=== PATIENT | female | born 1945 | race Caucasian/White ===

== ENCOUNTER → 2017-02-14 | Outpatient (CLI) | payer OTHER ==
[~2017-02-14] MED LIST: ACET-1138 PO; ACET-1256 PO; ASPEC325 PO; CHOL100010 PO; CLB100 PO; CLC100 PO; FRRG PO; FRRS300 PO; METH-307 PO; METO25TA3 PO; MRLP17X PO; ULT50X PO
--- NOTE | 2017-02-14 16:38 | MAMMOGRAPHY REPORT ---
BILATERAL DIGITAL SCREENING MAMMOGRAM WITH CAD: 02/14/2017 CLINICAL HISTORY: Routine screening. Patient has no complaints. TECHNIQUE: Bilateral CC, MLO and repeat right MLO views were obtained. Current study was also evalu ated with a Computer Aided Detection (CAD) system. COMPARISON: Comparison is made to exams dated: 02/11/2016 mammogram, 09/02/2015 mammogram, 03/03/2015 s tereotactic biopsy, 03/03/2015 mammogram, 02/19/2015 mammogram, and 02/10/2015 mammogram - [facility]. BREAST COMPOSITION: The tissue of both breasts is extremely dense, which lowers the sensitivity of mammography. FINDINGS: There is a stable metallic biopsy marker in the 6:00 left breast. And coarse calcificatio ns in the right breast and scattered punctate microcatheter calcifications are stable bilaterally. There is minimal vascular calcification as well. No new suspicious mass, architectural distortion o r cluster of microcalcifications is seen. IMPRESSION: ACR BI-RADS CATEGORY 1: NEGATIVE There is no mammographic evidence of malignancy. A 1 year screening mammogram is recommended. The p atient will receive written notification of the results. Approximately 10% of breast cancers are not detected with mammography. A negative mammographic repor t should not delay biopsy if a clinically suggestive mass is present. Ruth Mayo M.D. ay/:02/14/2017 13:52:53 Plasma Specialist: Sara Obregon, [facility] letter sent: Normal 1/2 BI-RADS Code: ACR BI-RADS Category 1: Negative
== END | disposition home or self-care (01) ==
LOC: C.MAMM 11:20
PROVIDERS: ATTEND Family Medicine
DX: Z12.31 Encounter for screening mammogram for malignant neoplasm of breast (principal)

== ENCOUNTER 2017-04-19 06:17 | Inpatient (IN) | payer OTHER ==
[2017-03-23 11:22] VITALS: BMI 22.0
--- NOTE | 2017-03-23 12:06 | PAT Medication Instructions ---
Service Date Mar 23, 2017. Current Home Medication List Acetaminophen (Tylenol), 2 TAB PO DAILY PRN for Pain Celecoxib (Celebrex), 1 CAP PO QDL Cholecalciferol (Vitamin D), 1 TAB PO QAM Methocarbamol (Robaxin), 750 MG PO PRN PRN for Muscle Spasms Metoprolol Succ (Toprol Xl) (Toprol-Xl), 12.5 MG PO QDD Polyethylene (Miralax), 1 DOSE PO UD PRN for Constipation Medication Instructions For Your Scheduled Surgery Celecoxib (Celebrex), 1 CAP PO QDL (patient will check with surgeon for instructions) Iron supplements (if started by surgeon can take up until day prior to surgery- do not take morning of surgery) - Hold the following medications the morning of surgery: Polyethylene (Miralax), 1 DOSE PO UD PRN for Constipation Methocarbamol (Robaxin), 750 MG PO PRN PRN for Muscle Spasms Cholecalciferol (Vitamin D), 1 TAB PO QAM - Take the following medications the morning of surgery with a sip of water: Metoprolol Succ (Toprol Xl) (Toprol-Xl), 12.5 MG PO QDD Acetaminophen (Tylenol), 2 TAB PO DAILY PRN for Pain (if needed) - Take the following medications as scheduled the night before surgery: Polyethylene (Miralax), 1 DOSE PO UD PRN for Constipation Methocarbamol (Robaxin), 750 MG PO PRN PRN for Muscle Spasms Acetaminophen (Tylenol), 2 TAB PO DAILY PRN for Pain If you have any questions please call us at [phone] or [phone] ( Sandra) or [phone]
[2017-03-23 12:31] LABS: BASO % 0.4 %; BASO ABS # 0.02 K/uL (0-0.2); COMPLETE YES; EOS % 1.8 %; HEMATOCRIT 36.6 % (37-47); IG% 0.2 %; LYMPH % 44.6 %; LYMPH ABS # 2.03 K/uL (1.2-3.4); MEAN CELL VOLUME 96.3 fL (80-100); MEAN CORPUSCULAR HEMOGLOBIN 31.6 pg (25-34); MEAN CORPUSCULAR HGB CONC 32.8 g/dl (32-36); MEAN PLATELET VOLUME 9.5 fL (7.4-10.4); PLATELET COUNT 212 K/uL (130-400); WHITE BLOOD COUNT 4.55 K/uL (4.8-10.8)
[2017-03-23 12:41] LABS: PARTIAL THROMBOPLASTIN RATIO 1.1; PROTHROMBIN TIME (PATIENT) 10.2 SECONDS (9.0-12.0)
--- NOTE | 2017-03-23 12:59 | DIAGNOSTIC IMAGING REPORT ---
CHEST PREADMISSION(PA/LAT) CLINICAL HISTORY: Preoperative evaluation. COMPARISON STUDY: No previous studies for comparison. FINDINGS: Lung volumes are normal. There is no consolidation or evidence of pulmonary edema. Cardiac size is within normal limits. There is moderate arthritis of both glenohumeral joints. IMPRESSION: No acute cardiopulmonary findings. Electronically signed by: Thompson Medrano M.D. 03/23/2017 12:57 PM Dictated Date/Time: 03/23/2017 12:56 PM
[2017-03-23 14:18] LABS: BUN/CREATININE RATIO 44.7 (10-20); CREATININE 0.51 mg/dl (0.60-1.20); POTASSIUM 4.3 mmol/L (3.5-5.1)
[2017-03-23 14:29] LABS: CALCIUM 9.3 mg/dl (8.5-10.1)
--- NOTE | 2017-04-16 11:25 | HISTORY & PHYSICAL EXAMINATION ---
DATE OF ADMISSION: 04/19/2017 CHIEF COMPLAINT: Bilateral hip pain, right side greater than left. HISTORY OF PRESENT ILLNESS: A 71-year-old female who presents for surgical treatment of her right hip. She has got a several year history of increasing bilateral hip pain and discomfort. She has been through extensive conservative treatment including oral medicines, massage therapy among other treatments. All these things have helped a little bit but over time she has developed increased pain and discomfort and decreased ability to get around. She reports significant stiffness in both hips. She gets fatigued and discomfort with any prolonged walking and difficulty doing this. She tried to work through it but tired of it and would like to consider hip arthroplasty, particularly on the right side. She really wants to do both hips, but do the right first. PAST MEDICAL HISTORY: 1. One episode of abnormal heartbeat managed with a beta abigail. 2. Anemia, status post cancer history. 3. 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 PAST SURGICAL HISTORY: Include: 1. Ileum resection for carcinoid. 2. Benign breast biopsies. ALLERGIES: None. CURRENT MEDICINES: Include: 1. Beta abigail half pill once a day. 2. Celebrex once a day. 3. Vitamin D. 4. MiraLax. 5. Anti-inflammatories. SOCIAL HISTORY: A 71-year-old female. She is . Does not smoke. FAMILY HISTORY: Noncontributory. REVIEW OF SYSTEMS: Negative for diabetes, neurologic problems, vascular problems, bleeding disorders. Denies any chest pain, no shortness of breath. No history of DVT or PE. She did have this one episode of arrhythmia, but well controlled. She does have chronic constipation issues with her carcinoid and bowel resection. She is on chronic MiraLax. PHYSICAL EXAMINATION: GENERAL: Reveals a pleasant, healthy appearing, middle-aged female. She looks in excellent health. HEAD, EYES, EARS, NOSE, AND THROAT EXAMINATION: Benign. NECK: Supple. No lymphadenopathy. LUNGS: Clear to auscultation. HEART: Regular rate and rhythm. ABDOMEN: Soft, nontender, nondistended. EXTREMITY EXAMINATION: Grossly neurovascularly intact except as follows: Examination of both hips reveals the patient walks with a bit of a waddling gait. Leg lengths clinically appear pretty equal. She has very stiff hips with very limited rotation, particularly internal. The right side is stiffer than the left. Negative straight leg raise. She is neurologically intact. X-RAYS: X-rays of both hips were reviewed. 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 She has got cystic change in the femoral head and acetabulum. ASSESSMENT: A 71-year-old female with bilateral hip pain and discomfort consistent with moderate to advanced hip DJD, right side a bit more symptomatic than the left. She would like to consider hip replacement surgery. PLAN: We are going to take her to the operating room and do a right total hip replacement. The risks and benefits of this procedure were explained to the patient including but not limited to DVT, PE, , infection, neurological injury, vascular injury, bleeding problem, pain, limited range of motion, stiffness, failure to relieve symptoms, incomplete relief of symptoms, need for further surgery in the future, fracture, leg length inequality, nerve palsy, dislocation, etc. The patient understands and desires to proceed. Informed consent was obtained. The patient has a history of constipation since carcinoid resection. We will be aggressive and try to manage this postoperatively. As far as discharge plans, she is planning to be discharged to home using [facility] home health program.
[~2017-04-19] VITALS: Ht 167.6 cm; Wt 64.5 kg
[2017-04-19] VITALS (11 sets, daily range): BP systolic 82–112; BP diastolic 48–66; PULSE 45–55; TEMP 35.4–36.8; O2SAT 95–99; Ht 167.6 cm; Wt 64.5 kg
[~2017-04-19 06:17] MED LIST changes: -ACET-1138 PO; +ACETAMINOPHEN 500 MG TAB PO SCH; -ASPEC325 PO; +CEFAZOLIN 2000 MG/60 ML D5W 60 ML IV SCH; -CLC100 PO; +FAMOTIDINE 20 MG TAB PO SCH; -FRRG PO; -FRRS300 PO; +GABAPENTIN 300 MG CAP PO SCH; +LACTATED RINGER'S 1000ML IV SCH; +LACTATED RINGER'S 500 ML IV SCH; +METOCLOPRAMIDE HCL 10 MG TAB PO SCH; +SCOPOLAMINE 1.5 MG TDSY TD SCH; +TRANEXAMIC ACID INJ 1,000 MG in SODIUM CHLORIDE 0.9% 100ML 100 ML IV SCH; -ULT50X PO
[2017-04-19] MEDS ORDERED: MoRPHine SULFATE PF 1 MG/ML 10 ML AMP/VIAL ONE (07:25)
[2017-04-19] MEDS ORDERED: FENTANYL CITRATE INJ 50 MCG/1 ML 2 ML VIAL ONE (07:26)
[2017-04-19] MEDS ORDERED: MIDAZOLAM HCL 1 MG/ML 2ML VIAL ONE (07:26)
[2017-04-19] MEDS ORDERED: ONDANSETRON INJ 2 MG/ML 2 ML VIAL ONE (07:28)
[2017-04-19] MEDS ORDERED: PROPOFOL IV EMULSION 10 MG/ML 20 ML VIAL IV ONE (07:28)
[2017-04-19] MEDS ORDERED: BUPIVACAINE 0.5 % 5 MG/1 ML PF 10ML VIAL ONE (07:42)
--- NOTE | 2017-04-19 08:55 | History & Physical Bridge Note ---
H&P Re-Evaluation Bridge Note: I have examined the patient, reviewed the History & Physical and in the interval since the performance of the History & Physical I have noted the following changes of clinical significance: No changes noted
[2017-04-19] MEDS ORDERED: BACITRACIN 50000 UNIT VIAL ONE (08:59)
[2017-04-19] MEDS ORDERED: BUPIVACAINE/EPINEPHRINE 0.5% MPF 1:200,000 30 ML VIAL ONE (08:59)
[2017-04-19] MEDS ORDERED: WATER, STERILE FOR INJ 10 ML VIAL ONE (09:59)
[2017-04-19] MEDS ORDERED: EpHEDrine SULFATE INJ 50 MG/ML AMP ONE (09:59)
--- NOTE | 2017-04-19 10:41 | [facility] Post Operative Brief Note ---
Immediate Operative Summary Operative Date April 19, 2017. Pre-Operative Diagnosis Advanced Right Hip Degenerative Joint Disease Post-Operative Diagnosis Advanced Right Hip Degenerative Joint Disease Procedure(s) Performed Right Total Hip Arthroplasty--Uncemented Surgeon Dr. Jerome Bilingual Teacher Assistant Surgeon(s) ISHA Simpson Estimated Blood Loss 200 cc Findings Right Hip DJD Fluids (cc crystalloids) 1400 cc Specimens A. Right Femoral Head Drains None Anesthesia Spinal Complication(s) None Disposition Recovery Room / PACU
[2017-04-19] MEDS ORDERED: MAGNESIUM HYDROXIDE SUSP 30 ML UDC PO PRN (10:45)
[2017-04-19] MEDS ORDERED: ALUMINUM/MAGNESIUM/SIMETH (MAALOX MAX) 30 ML UDC PO PRN (10:45)
[2017-04-19] MEDS ORDERED: SILVER SULFADIAZINE 1% CR 50 GM JAR EXT PRN (10:45)
[2017-04-19] MEDS ORDERED: BISACODYL 10 MG SUPP PR PRN (10:45)
[2017-04-19] MEDS ORDERED: POLYETHYLENE (MIRALAX) 17 GM PACK PO PRN (10:45)
[2017-04-19] MEDS ORDERED: NALOXONE HCL INJ 1 MG in SODIUM CHLORIDE 0.9% 1000ML 1,000 ML IV PRN ×4 (11:03)
[2017-04-19] MEDS ORDERED: NALOXONE HCL INJ 0.08 MG in SYRINGE 1.8 ML IV PRN ×2 (11:03→12:45)
[2017-04-19] MEDS ORDERED: SODIUM CHLORIDE 0.9% 1000ML 1,000 ML IV PRN (11:03)
[2017-04-19] MEDS ORDERED: LACTATED RINGER'S 1000ML 500 ML IV PRN (11:03)
[2017-04-19] MEDS ORDERED: DC INTRASPINAL MORPHINE SCH (11:15)
[2017-04-19] MEDS ORDERED: EpHEDrine SULFATE INJ 50 MG/ML AMP IV PRN (11:15)
[2017-04-19] MEDS ORDERED: MoRPHine SULFATE PF 1 MG/ML 10 ML AMP/VIAL EPI PRN (11:15)
[2017-04-19] MEDS ORDERED: NALOXONE HCL 0.4 MG/1 ML VIAL/CARP IV PRN (11:15)
[2017-04-19] MEDS ORDERED: ONDANSETRON INJ 2 MG/ML 2 ML VIAL IV PRN (11:15)
[2017-04-19] MEDS ORDERED: DiphenhydrAMINE HCL 50 MG/ML VIAL IV PRN (11:15)
[2017-04-19] MEDS ORDERED: PROMETHAZINE HCL INJ 25 MG in SODIUM CHLORIDE 0.9% 50ML 50 ML IV PRN (11:15)
[2017-04-19] MEDS ORDERED: NO NARCOTICS OR SEDATIVES SCH (11:15)
[2017-04-19] MEDS ORDERED: NALBUPHINE HCL INJ 10 MG/ML AMP IV PRN (11:15)
--- NOTE | 2017-04-19 11:18 | DIAGNOSTIC IMAGING REPORT ---
RIGHT PELVIS/UNILATERAL HIP 1 VIEW CLINICAL HISTORY: Right hip degenerative joint disease. Arthroplasty. COMPARISON: Pelvis and hip radiographs February 25, 2017. FINDINGS: Alignment of the total right hip arthroplasty is anatomic. There is no periprosthetic fracture or unexpected radiopaque foreign body. 2 acetabular screws are placed. There are skin eusebia. IMPRESSION: Expected findings following total right hip arthroplasty. Electronically signed by: Thompson Medrano M.D. 04/19/2017 11:17 AM Dictated Date/Time: 04/19/2017 11:16 AM
--- NOTE | 2017-04-19 11:32 | Anesthesiology Progress Note ---
Anesthesia Post Op Note Date & Time April 19, 2017 at 11:32 Vital Signs Pain Intensity: 0 Vital Signs Past 12 Hours Date Time Temp Pulse Resp B/P Pulse Ox O2 Delivery O2 Flow Rate FiO2 04/19/17 11:20 36.4 52 16 94/50 99 Nasal Cannula 2 04/19/17 11:10 36.4 55 16 92/51 100 Nasal Cannula 2 04/19/17 11:00 55 16 95/50 100 Nasal Cannula 2 04/19/17 10:50 53 16 104/54 100 Nasal Cannula 2 04/19/17 10:40 36.6 61 16 97/54 98 Nasal Cannula 2 04/19/17 07:25 36.6 53 20 112/66 97 Room Air Notes Mental Status: alert / awake / arousable, participated in evaluation Pt Amnestic to Procedure: Yes Nausea / Vomiting: adequately controlled Pain: adequately controlled Airway Patency, RR, SpO2: stable & adequate BP & HR: stable & adequate Hydration State: stable & adequate Neuraxial Anesthesia: was administered, sensory block is resolving Anesthetic Complications: no major complications apparent
--- NOTE | 2017-04-19 11:50 | OPERATIVE REPORT ---
DATE OF OPERATION: 04/19/2017 SURGEON: Dr. Francois Jerome. SKEIN WINDING OPERATOR: ISHA Ortega PREOPERATIVE DIAGNOSIS: Right hip degenerative joint disease. POSTOPERATIVE DIAGNOSIS: Same. PROCEDURE PERFORMED: Right uncemented ceramic on highly cross-linked polyethylene total hip arthroplasty. COMPLICATIONS: None. ESTIMATED BLOOD LOSS: 200 mL. FLUID REPLACEMENT: 1400 mL crystalloid fluid replacement. ANESTHESIA: Duramorph spinal. DRAINS: None. SPECIMENS: Right femoral head sent for pathology. OPERATIVE INDICATIONS: The patient is a 71-year-old female who has had a several year history of bilateral hip pain and discomfort. She has been through extensive conservative care. As time has gone on, she is limiting her activities. Both hips were hurting pretty equally, but the right hip looked a little bit worse radiographically. We elected to proceed with total hip arthroplasty. OPERATIVE FINDINGS: Operative findings revealed advanced right hip DJD. She had grade 4 [id number] disease of the femoral head and acetabulum. She did not have much eburnation. She did have a small hip joint effusion. No real major osteophytes. OPERATIVE IMPLANTS: Operative implants consisted of: 1. Biomet G7 size 50-mm acetabular shell. 2. A 6.5 cancellous acetabular screws, 1 at 35 mm length and 1 at 20 mm in length. 3. An apex hole eliminator. 4. Highly cross-linked polyethylene liner with a 50 mm outer diameter and 32 mm inner diameter. 5. A +5/32 mm metal articular ball. 6. DePuy [place] size 4 standard offset femoral stem. OPERATIVE PROCEDURE: The patient was taken to the operating room, and placed on the operating table in the supine position. A spinal anesthetic had been implemented in the holding area. A Miranda catheter was placed in a sterile fashion. The patient was then placed in the left lateral decubitus position. An axillary roll was placed. A Stulberg hip positioner was used for positioning. All contact areas were meticulously padded and the right hip and leg were then prepped and draped in the usual sterile fashion. A posterolateral approach to the right hip was then performed through a curvilinear incision centered over the greater trochanter. Sharp dissection was carried out through the subcutaneous tissues down to the level of the IT band and gluteal fascia. The IT band and gluteal fascia were then incised longitudinally in line with skin incision. The underlying greater trochanteric bursa was excised. The piriformis and external rotators were tagged and taken off the posterior aspect of the femur. Great care was taken throughout the procedure to protect the sciatic nerve at all times. Posterior capsulotomy was then performed leaving a large flap for later repair. Hip was internally rotated and dislocated. Femoral neck osteotomy cut was made with the final cut 12 mm above the lesser trochanter. Femoral head was removed and sent for pathology. The femur was retracted anteriorly. Attention was then drawn to the acetabulum. The acetabular labrum was excised. The pulvinar fat was excised. Sequential reaming of the acetabulum was then performed beginning with a size 43 and progressing up to 49. A 50-mm Biomet G7 acetabular shell was then placed in about 40 degrees of lateral opening and 20 degrees of anteversion. It was fixed with two 6.5 cancellous acetabular screws. A trial liner was placed. Attention was then drawn to the femur. The proximal femur was entered with cookie cutter followed by canal finder and lateralizing reamer. Sequential reaming of the femur was then performed beginning with a size 0/1 progressing up to 2/3. I then broached beginning with a size 1 broach and progressing up to a 4. We got excellent metaphyseal fit. I could not quite get this down to the calcar cut, but pretty close. We elected to use this implant. We then trialed the hip. The +5/32 mm articular ball restored leg lengths equal and was fully stable in full extension and external rotation and flexion to 90 degrees, internal rotation to over 50-60 degrees. Soft tissue tension seemed appropriate. I elected to use these implants. All trial implants were removed. An apex hole eliminator was placed. A highly cross-linked polyethylene liner was placed. A DePuy [place] size 4 standard offset femoral stem was placed. We once again did not quite get this down to the calcar cut, but about 2 mm proud. A +5/32 mm ceramic articular ball was placed. Hip was located and once again found to be stable. Attention was then drawn toward closing. The wound was irrigated with copious amounts of pulsatile lavage solution. I did inject locally with 60 mL of 0.5% Marcaine with epinephrine. The posterior capsule and external rotators were then repaired through drill holes in the posterior trochanter with #2 Ti-Cron suture. The IT band and gluteal fascia were then closed with #1 PDS suture in running fashion. The subcutaneous tissues were then closed with 2 layers with the deep layer #1 Vicryl suture and the subcutaneous tissues with 2-0 Dexon suture in a buried interrupted fashion. Skin was closed skin eusebia. Leg was then cleaned and dried and a sterile dressing of Xeroform, 4 x 4s, ABD pad and foam tape was applied. The patient then transferred to the recovery room in stable condition. The patient tolerated the procedure well with no complications. All needle and sponge counts were correct at the end of the operation. I attest to the content of the Intraoperative Record and any orders documented therein. Any exceptio ns are noted below.
[2017-04-19] MEDS: D5W AND 1/2NSS + 20MEQ KCL 1,000 ML IV SCH ×2 (13:37→22:23)
[2017-04-19] MEDS: KETOROLAC TROMETHAMINE 15 MG/ML VIAL IV. SCH ×2 (14:29→22:30)
[2017-04-19] MEDS: ACETAMINOPHEN 500 MG TAB PO SCH ×2 (14:29→22:31)
[2017-04-19] MEDS: CHECK SCOPOLAMINE PATCH PLACEMENT SCH (16:00)
[2017-04-19] MEDS ORDERED: TRANEXAMIC ACID INJ 1,000 MG in SODIUM CHLORIDE 0.9% 100ML 100 ML IV ONE (17:00)
[2017-04-19] MEDS: METOPROLOL SUCC 25MG EXT REL TAB PO SCH (17:45)
[2017-04-19] MEDS: FERROUS GLUCONATE 324 MG TAB PO SCH ×2 (17:45→18:12)
[2017-04-19] MEDS: CEFAZOLIN IV 1,000 MG in DEXTROSE 5% 50ML 50 ML IV SCH (18:12)
--- NOTE | 2017-04-19 19:49 | PROGRESS NOTE ---
DATE: 04/19/2017 SUBJECTIVE: A 71-year-old female postop from a right total hip replacement. She is doing well. Not having any pain yet. No chest pain or shortness of breath. Not feeling dizzy or lightheaded. OBJECTIVE: VITAL SIGNS: Temperature 36.3. Vital signs stable. Mild hypotension with blood pressure 92/52. She is asymptomatic. GENERAL: Reveals the patient is lying in bed and looks quite comfortable. She is lying flat in bed at the nurses' request. LUNGS: Clear to auscultation. HEART: Regular rate and rhythm. ABDOMEN: Soft, nontender, nondistended. EXTREMITIES: Grossly neurovascularly intact except as follows: Examination of the right hip and leg reveals the leg lengths to be equal. Hip is located. Dressing is clean, dry and intact. Thigh is soft and supple. She can dorsiflex and plantarflex her foot appropriately. She is neurologically intact. X-RAYS: X-rays of the right hip from recovery room reviewed. It shows a right uncemented total hip arthroplasty. Components looked to be in good position. No signs of problems. ASSESSMENT: A 71-year-old female postop from a right total hip replacement, doing well. Pain is controlled. Hip is located. She is neurologically intact. She is hypotensive, but asymptomatic. PLAN: 1. DVT prophylaxis including thigh-high TEDs, SCDs, and aspirin twice a day. 2. PT/OT. She can weightbear as tolerated. Right total hip protocol. 3. Pain control, doing well with current pain regimen. 4. IV antibiotics x24 hours. 5. Disposition: She is hoping to be discharged to home with some home health once adequately recovered.
[2017-04-19] MEDS ORDERED: ASPEC325 PO (22:00)
[2017-04-19] MEDS ORDERED: FRRG PO (22:00)
[2017-04-19] MEDS ORDERED: ULT50X PO (22:00)
[2017-04-19] MEDS ORDERED: ACET-1138 PO (22:00)
[2017-04-19] MEDS ORDERED: CLC100 PO (22:00)
--- NOTE | 2017-04-19 22:03 | Discharge Instructions ---
Discharge Instructions Date of Service April 19, 2017. Admission Reason for Admission: Right Hip Degenerative Joint Disease, Hip Pain Discharge Discharge Diagnosis / Problem: Right Hip Replacement Discharge Goals Goal(s): Decrease discomfort, Improve function, Increase independence, Improve disease control, Therapeutic intervention Activity Recommendations Activity Limitations: per Instructions/Follow-up section (total Hip Precautions ) Weightbearing Status: Right weightbearing . Instructions / Follow-Up Instructions / Follow-Up ACTIVITY RECOMMENDATIONS: Physical Therapy: * Aggressive physical therapy is not usually needed. You will learn to take care of yourself safely and walk. * Follow the "Hip Precautions Instructions." * In some cases, the social work instructor at the hospital will arrange to have a therapist come to your house for the first couple of weeks to help you learn these skills. * You need to practice on your own or with the help of a family member as needed. * When you learn these skills, most of the therapy can be done on your own. Home Exercise: * You were shown a series of exercises in the hospital. Do these exercises three to four times each day including the exercises you were shown in physical therapy. Walking: * Get up and walk several times each day. For the first four weeks, try not to stand or walk for more than one hour at a time. If you do stand or walk for more than one hour, you will not hurt anything, but your leg will likely swell. * As you feel comfortable, you may change from the walker or crutches to a cane and then to independent walking. MEDICATIONS: New Medicine: * You will likely be taking one or more of these medicines: 1. Tramadol - Take, as directed, when you need it, every four to six hours to control your pain. 2. Iron Sulfate - Take three times each day for the month after surgery to help you replace the blood lost during surgery. 3. AAspirin - Thins your blood to lessen the chance of forming a blood clot. * The most common side effects of pain medicine and iron are nausea and constipation. If nausea or constipation is too much of a problem or if you have any questions about your new medicines or doses, call [facility] at . We will try to help you manage these issues. VERY IMPORTANT TO READ AND REVIEW" Pain: * The immediate post-operative period after hip replacement surgery is often quite painful. * You are given a prescription for pain medicine. You should take it, as directed, when you need it, especially before physical therapy and before going to bed. Pain that interferes with sleep is very common and can last several months. * You will likely need pain medicine for the first two to four weeks. It will not stop all of the pain. The pain will lessen and as you feel better, you may change to milder pain medicine such as Tylenol. * The most common side effects of pain medicine are nausea and constipation, so don't take more than you need. SPECIAL CARE INSTRUCTIONS: TEDs/Elastic Stockings: * The white elastic stockings help limit swelling and prevent blood clots from forming in your legs. The more you wear them, the more they work. * Wear them for six weeks. Prevention of Infection: * Take antibiotics one hour before any dental cleaning, dental work, urological procedure, gastrointestinal procedure or any invasive surgery in order to prevent your new joint from getting infected. * You may get the antibiotics from the doctor performing the procedure or you may call our office at before and we will call in a prescription to the pharmacy of your choice. Things to Watch For: * Drainage from the incision site that occurs more than one week after your surgery. * Severely increased leg pain or swelling. * Increased redness at the incision site. * Fever above 102 degrees Fahrenheit. * Unusual chest pain or shortness of breath. * Unusual pain or burning with urination. Call [facility] at with any of the above problems or if you have any questions about your medicines or recovery. FOLLOW UP VISIT: Make an appointment to see your doctor for approximately two weeks after surgery for a progress check and staple removal by calling the office at . Current Hospital Diet Patient's current hospital diet: Regular Diet Discharge Diet Recommended Diet: Regular Diet Procedures Procedures Performed: Right Total Hip Arthroplasty--Uncemented Pending Studies Studies pending at discharge: no Medical Emergencies . Who to Call and When: Medical Emergencies: If at any time you feel your situation is an emergency, please call [phone] immediately. . Non-Emergent Contact Non-Emergency issues call your: Surgeon . "Provider Documentation" section prepared by Francois Jeorme. . VTE Core Measure Inpt VTE Proph given/why not?: Other Anticoagulation, T.E.D. Stockings, SCD's
[2017-04-19] MEDS: DOCUSATE SODIUM 100 MG CAP PO SCH (22:30)
[2017-04-19] MEDS: ASPIRIN 325 MG ECTAB PO SCH (22:31)
[2017-04-19] MEDS: SENNA 8.6 MG TAB PO SCH (22:32)
[2017-04-20] VITALS (12 sets, daily range): BP systolic 90–130; BP diastolic 52–73; PULSE 49–62; TEMP 36.4–37; O2SAT 92–98
[2017-04-20] MEDS: CHECK SCOPOLAMINE PATCH PLACEMENT SCH ×4 (00:17→23:34)
[2017-04-20] MEDS: CEFAZOLIN IV 1,000 MG in DEXTROSE 5% 50ML 50 ML IV SCH (02:07)
[2017-04-20] MEDS: KETOROLAC TROMETHAMINE 15 MG/ML VIAL IV. SCH ×4 (02:07→20:15)
[2017-04-20] MEDS ORDERED: TRAMADOL HCL 50 MG TAB PO PRN (04:15)
[2017-04-20] MEDS ORDERED: METHOCARBAMOL 750 MG TAB PO PRN (04:16)
[2017-04-20] MEDS ORDERED: METOCLOPRAMIDE HCL INJ 5 MG/ML 2 ML VIAL IV PRN (04:16)
[2017-04-20] MEDS ORDERED: ZOLPIDEM TARTRATE 5 MG TAB PO PRN (04:16)
[2017-04-20] MEDS: ACETAMINOPHEN 500 MG TAB PO SCH ×3 (05:59→22:00)
[2017-04-20 06:06] LABS: BASO % 0.1 %; BASO ABS # 0.01 K/uL (0-0.2); COMPLETE YES; IG% 0.3 %; LYMPH % 14.6 %; LYMPH ABS # 1.16 K/uL (1.2-3.4); MEAN CELL VOLUME 97.1 fL (80-100); MEAN CORPUSCULAR HEMOGLOBIN 32.4 pg (25-34); MEAN CORPUSCULAR HGB CONC 33.3 g/dl (32-36); MEAN PLATELET VOLUME 9.4 fL (7.4-10.4); MONO % 9.9 %; NEUT % 75.1 %; PLATELET COUNT 151 K/uL (130-400); RED BLOOD COUNT 3.09 M/uL (4.2-5.4); WHITE BLOOD COUNT 7.96 K/uL (4.8-10.8)
[2017-04-20 06:47] LABS: BUN/CREATININE RATIO 24.9 (10-20); CALCIUM 7.4 mg/dl (8.5-10.1); CREATININE 0.65 mg/dl (0.60-1.20); POTASSIUM 4.3 mmol/L (3.5-5.1)
--- NOTE | 2017-04-20 07:48 | Anesthesiology Progress Note ---
Anesthesia Post Op Note Date & Time April 20, 2017 at 07:47 Vital Signs Pain Intensity: 0.0 Vital Signs Past 12 Hours Date Time Temp Pulse Resp B/P Pulse Ox O2 Delivery O2 Flow Rate FiO2 04/20/17 04:00 17 97 04/20/17 03:26 37.0 53 16 93/52 94 Nasal Cannula 2.0 04/20/17 03:00 17 95 04/20/17 02:00 18 97 04/20/17 01:00 18 97 04/20/17 00:30 Nasal Cannula 2.0 04/20/17 00:00 18 97 04/19/17 23:55 36.8 55 16 105/48 95 Nasal Cannula 2.0 Notes Mental Status: alert / awake / arousable, participated in evaluation Pt Amnestic to Procedure: Yes Nausea / Vomiting: adequately controlled Pain: adequately controlled Airway Patency, RR, SpO2: stable & adequate BP & HR: stable & adequate Hydration State: stable & adequate Anesthetic Complications: no major complications apparent
[2017-04-20] MEDS: DOCUSATE SODIUM 100 MG CAP PO SCH ×2 (08:29→20:16)
[2017-04-20] MEDS: MULTIVITAMIN TAB PO SCH (08:29)
[2017-04-20] MEDS: ASPIRIN 325 MG ECTAB PO SCH ×2 (08:29→20:16)
[2017-04-20] MEDS: FERROUS GLUCONATE 324 MG TAB PO SCH ×3 (08:29→17:54)
[2017-04-20] MEDS: CHOLECALCIFEROL 400 INTER.UNIT TAB PO SCH (08:29)
[2017-04-20] MEDS: D5W AND 1/2NSS + 20MEQ KCL 1,000 ML IV SCH (08:30)
[2017-04-20] MEDS: PANTOprazole SOD 40 MG TAB PO SCH (08:30)
[2017-04-20] MEDS: METOPROLOL SUCC 25MG EXT REL TAB PO SCH (17:54)
--- NOTE | 2017-04-20 19:01 | PROGRESS NOTE ---
DATE: 04/20/2017 SUBJECTIVE: A 71-year-old white female postop day 1 from right total hip replacement. She is doing pretty well. Pain is controlled. Therapy went pretty well. Denies any chest pain or shortness of breath. Not feeling dizzy or lightheaded. PHYSICAL EXAMINATION: GENERAL: Shows a pleasant, thin female. The patient is lying in bed, looks pretty comfortable. LUNGS: Clear to auscultation. HEART: Regular rate and rhythm. ABDOMEN: Soft, nontender, nondistended. EXTREMITIES: Grossly neurovascularly intact except as follows: Examination of the right hip and leg reveals her hip to be located. Leg lengths were equal. Dressing is clean, dry and intact. She can dorsiflex and plantarflex her foot appropriately. LABORATORY DATA: Hemoglobin 10.0. Hematocrit 30.0. Electrolytes are stable. ASSESSMENT: A 71-year-old white female postop day 1 from right total hip replacement, doing pretty well. Pain is controlled. PLAN: 1. DVT prophylaxis including thigh-high TEDs, SCDs, and aspirin twice a day. 2. PT/OT. Weightbear as tolerated. Right total hip protocol. 3. Pain control, doing pretty well with current pain regimen. 4. Disposition: She is planning to be discharged to home with some home health once adequately recovered.
[2017-04-20] MEDS: SENNA 8.6 MG TAB PO SCH (20:16)
[2017-04-20] MEDS: ONDANSETRON INJ 2 MG/ML 2 ML VIAL IV PRN (22:27)
[2017-04-21] MEDS ORDERED: NURSING VERBAL MED ORDER ONE (00:45)
[2017-04-21] MEDS: NYSTATIN SUSP 500,000 U/5 ML UDC PO SCH ×2 (01:57→09:51)
[2017-04-21] MEDS: KETOROLAC TROMETHAMINE 15 MG/ML VIAL IV. SCH ×2 (01:57→07:19)
[2017-04-21] MEDS: ACETAMINOPHEN 500 MG TAB PO SCH (05:41)
[2017-04-21 05:59] VITALS: BP 132/79; PULSE 66; TEMP 36.8; O2SAT 94
[2017-04-21] MEDS: ONDANSETRON INJ 2 MG/ML 2 ML VIAL IV PRN (07:19)
--- NOTE | 2017-04-21 07:32 | PROGRESS NOTE ---
DATE: 04/21/2017 SUBJECTIVE: A 71-year-old female postop day 2 from right total hip replacement. She is doing pretty well. Pain is controlled. No chest pain or shortness of breath. Not feeling dizzy or lightheaded. OBJECTIVE: VITAL SIGNS: Temperature 36.8. Vital signs stable. PHYSICAL EXAMINATION: GENERAL: A healthy pleasant elderly female. She is lying in bed, looks pretty comfortable. LUNGS: Clear to auscultation. HEART: Regular rate and rhythm. ABDOMEN: Soft, nontender, nondistended. EXTREMITIES: Grossly neurovascularly intact except as follows: Examination of the right hip and leg reveals the dressing to be clean, dry and intact. Hip is located. She is neurologically intact. ASSESSMENT: A 71-year-old female postop day 2 from right total hip replacement, doing well. Pain is controlled. Therapy has gone well. PLAN: 1. DVT prophylaxis including thigh-high TEDs, SCDs, and aspirin twice a day. 2. PT/OT. Weightbearing as tolerated. Right total hip protocol. 3. Pain control, doing pretty well with current pain regimen. 4. Disposition: Plan to discharge to home with some home health once adequately recovered.
[2017-04-21] MEDS: FERROUS GLUCONATE 324 MG TAB PO SCH (08:30)
[2017-04-21] MEDS: MULTIVITAMIN TAB PO SCH (09:00)
[2017-04-21] MEDS: ASPIRIN 325 MG ECTAB PO SCH (09:50)
[2017-04-21] MEDS: DOCUSATE SODIUM 100 MG CAP PO SCH (09:52)
[2017-04-21] MEDS: PANTOprazole SOD 40 MG TAB PO SCH (09:53)
[2017-04-21] MEDS: CHOLECALCIFEROL 400 INTER.UNIT TAB PO SCH (09:54)
[2017-04-21 10:21] VITALS: BP 132/79; PULSE 66; TEMP 36.8; O2SAT 94
--- NOTE | 2017-04-27 08:34 | DISCHARGE SUMMARY ---
ADMITTING PHYSICIAN AND SURGEON: Dr. Jerome. ADMITTING DIAGNOSIS: Right hip degenerative joint disease. SURGERY PERFORMED: Right total hip arthroplasty. SECONDARY DIAGNOSES: Includes episode of abnormal heartbeat, anemia, carcinoid of the ileum. CONSULTS: None obtained. HISTORY AND PHYSICAL EXAMINATION: Well documented in the patient's chart. HOSPITAL COURSE: The patient was admitted on 04/19/2017 and underwent total hip arthroplasty, tolerated the procedure well. There were no complications. She was transferred to the PACU postoperatively and later to the orthopedic floor for further care. She was given Ancef for antibiotic prophylaxis, MAYTE stockings, SCDs and aspirin for DVT prophylaxis. Hemoglobin, hematocrit and vital signs were monitored during her hospital stay and remained stable. She developed some postoperative anemia, did not require any blood transfusions. There were no complications. On postoperative day 2, she was tolerating a general diet. She was participating in physical therapy. She had no signs or symptoms of deep vein thrombosis. On postop day 2, she was discharged home, was set up with home health services. She was given printed discharge instructions including prescriptions for extra strength Tylenol, aspirin 325 mg b.i.d., docusate, iron supplement and tramadol. Continue her home medications, continue physical therapy. She is weight bearing as tolerated on total hip precautions, MAYTE stockings. Follow up in 10-12 days or sooner if there are any problems or concerns.
== END 2017-04-21 11:22 | disposition home health service (06) | DRG 470 ==
LOC: ENRESERVTM → ENRESERVDT → C.ACU 06:17 → C.3E 07:55
PROVIDERS: ADMIT Orthopaedic Surgery Sports Medicine; ATTEND Orthopaedic Surgery Sports Medicine
PROC: 0SR904A Replacement of Right Hip Joint with Ceramic on Polyethylene Synthetic Substitute, Uncemented, Open Approach (ICD-10-PCS; principal; 2017-04-19 08:55)
DX: M16.0 Bilateral primary osteoarthritis of hip (principal); D64.9 Anemia, unspecified; M54.5 Low back pain; K59.00 Constipation, unspecified; M81.0 Age-related osteoporosis without current pathological fracture; M54.10 Radiculopathy, site unspecified; I95.9 Hypotension, unspecified; M25.451 Effusion, right hip; I08.1 Rheumatic disorders of both mitral and tricuspid valves; I49.1 Atrial premature depolarization; Z85.830 Personal history of malignant neoplasm of bone; Z79.1 Long term (current) use of non-steroidal anti-inflammatories (NSAID); Z79.899 Other long term (current) drug therapy

== ENCOUNTER → 2018-02-16 | Outpatient (CLI) | payer OTHER ==
[~2018-02-16] MED LIST changes: +ACET-1138 PO; -ACETAMINOPHEN 500 MG TAB PO SCH; +ASPEC325 PO; -CEFAZOLIN 2000 MG/60 ML D5W 60 ML IV SCH; +CLC100 PO; -FAMOTIDINE 20 MG TAB PO SCH; +FRRG PO; -GABAPENTIN 300 MG CAP PO SCH; -LACTATED RINGER'S 1000ML IV SCH; -LACTATED RINGER'S 500 ML IV SCH; -METOCLOPRAMIDE HCL 10 MG TAB PO SCH; -SCOPOLAMINE 1.5 MG TDSY TD SCH; -TRANEXAMIC ACID INJ 1,000 MG in SODIUM CHLORIDE 0.9% 100ML 100 ML IV SCH; +ULT50X PO
--- NOTE | 2018-02-20 12:42 | MAMMOGRAPHY REPORT ---
BILATERAL DIGITAL SCREENING MAMMOGRAM TOMOSYNTHESIS WITH CAD: 02/16/2018 CLINICAL HISTORY: Routine screening. Patient has no complaints. TECHNIQUE: Breast tomosynthesis in addition to standard 2D mammography was performed. Current study was also evaluated with a Computer Aided Detection (CAD) system. COMPARISON: Comparison is made to exams dated: 02/14/2017 mammogram, 02/11/2016 mammogram, 09/02/2015 m ammogram, 03/03/2015 mammogram, 02/19/2015 mammogram, and 02/10/2015 mammogram - [facility] nter. BREAST COMPOSITION: The tissue of both breasts is extremely dense, which lowers the sensitivity of m ammography. FINDINGS: No suspicious masses, calcifications, or areas of architectural distortion are noted in ei ther breast. There has been no significant interval change compared to prior exams. A biopsy clip is again noted within the left inferior breast at approximately 6:00. Scattered bilateral benign-appea ring calcifications are not significantly changed. IMPRESSION: ACR BI-RADS CATEGORY 2: BENIGN There is no mammographic evidence of malignancy. A 1 year screening mammogram is recommended. The pa tient will receive written notification of the results. Approximately 10% of breast cancers are not detected with mammography. A negative mammographic report should not delay biopsy if a clinically suggestive mass is present. Leslye Fox M.D. /:02/16/2018 15:58:40 Building Economist: Sara MONK)(M), [facility] letter sent: Normal 1/2 BI-RADS Code: ACR BI-RADS Category 2: Benign
== END | disposition home or self-care (01) ==
LOC: C.MAMM 11:02
PROVIDERS: ATTEND Family Medicine
DX: Z12.31 Encounter for screening mammogram for malignant neoplasm of breast (principal)

== ENCOUNTER 2022-02-22 06:28 | Observation (INO) ==
--- NOTE | 2022-02-02 11:03 | PAT Medication Instructions ---
Medication Instructions Date of Service February 02, 2022 Home Medications Medication Instructions Recorded 3-in-1 Commode #1 ea 01/28/22 3-in-1 Commode #1 ea 01/28/22 celecoxib 100 mg capsule (Celebrex) 100 mg PO PM cholecalciferol (vitamin D3) 50 mcg (2,000 unit)apsule (Vitamin D3) 50 mcg PO PM metoprolol succinate 25 mg tablet,extended release 24 hr 12.5 mg PO PM denosumab 60 mg/mL subcutaneous syringe (Prolia) 60 mg SUBCUT UD Continue as directed denosumab 60 mg/mL subcutaneous syringe (Prolia) 60 mg SUBCUT UD ASK your surgeon for instructions celecoxib 100 mg capsule (Celebrex) 100 mg PO PM Take evening before surgery cholecalciferol (vitamin D3) 50 mcg (2,000 unit)apsule (Vitamin D3) 50 mcg PO PM metoprolol succinate 25 mg tablet,extended release 24 hr 12.5 mg PO PM OTHERWISE NOTHING TO EAT OR DRINK AFTER MIDNIGHT Other Notes If you have any questions please call us at [phone] or [phone] or [phone] or [phone]
--- NOTE | 2022-02-05 09:53 | Anesthesiology Consultation ---
Date of Service February 05, 2022 Assessment & Plan (1) Encounter for pre-operative examination: - PCP clearance and will attempt to obtain 2016 Holter monitor report if available from PCP. - Outpatient joint pathway: Per surgeon and patient, plan for outpatient joint program. Upon review of chart-patient is not an acceptable candidate for Same Day Joint Program from anesthesia perspective pending perioperative course. 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 Di at surgeon's office made aware. - COVID screening: Per assessment on 02/05/2022: Travel screen negative, no known COVID-19 positive contacts or current COVID-19 related symptoms in past 2 weeks. Patient vaccinated. Surgeon arranging preop COVID testing, scheduled 02/18/2022. Awaiting results. Chart Review Chart Review: Pending: Refer to Additional Notes / Consult section and Patient seen in Pre Admission Testing History Surgery Operation Date: 02/22/22 07:00 Proposed Procedures p OP: Left Total Hip Arthroplasty - Francois Jerome MD Height/Weight Height: 5 ft 6.5 in Weight: 67.6 kg Allergies Allergy/AdvReac Type Severity Reaction Status Date / Time No Known Allergies Allergy Verified 02/01/22 11:48 Medications Home Medications Medication Instructions Recorded Confirmed Last Taken celecoxib 100 mg capsule (Celebrex) 100 mg PO PM 12/03/21 02/01/22 12/08/21 cholecalciferol (vitamin D3) 50 50 mcg PO PM 12/03/21 02/01/22 12/08/21 mcg (2,000 unit) capsule (Vitamin D3) metoprolol succinate 25 mg 12.5 mg PO PM 12/03/21 02/01/22 12/08/21 tablet,extended release 24 hr denosumab 60 mg/mL subcutaneous 60 mg SUBCUT UD 12/04/21 02/01/22 12/08/21 syringe (Prolia) 3-in-1 Commode #1 ea 01/28/22 01/28/22 Unknown 3-in-1 Commode #1 ea 01/28/22 01/28/22 Unknown Past Medical History Medical History (Updated 02/05/22 @ 10:28 by Renata Brock PA-C) Degenerative joint disease of right hip Hearing loss Hx of colonic polyps Ileal cancer 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 Exercise / Class Metabolic Activity II 4-5 Yardwork/Stairs/Walk up hill (denies CP or SOB with 1 FOS) Past Family History Family History Father FHx: colon cancer Grandmother (Maternal) No problems noted. Grandmother FHx: colon cancer Other FHx: colonic polyps No family history of adverse response to anesthesia Past Surgical History Surgical History H/O local excision of skin lesion benign History of cataract surgery RT/LEFT History of colonoscopy History of esophagogastroduodenoscopy (EGD) Nausea and vomiting after administration of anesthetic agent S/P small bowel resection (~2007) Status post right hip replacement Past Anesthesia History No Hx of Anesthesia Complications and No Family Hx of Anesthesia Complications History of PONV No Hx of Motion Sickness and History of PONV (needed to stay an additional day due to delayed onset of PONV with R PINKY, unsure if received preventive medication) Social History Smoking Status: Never smoker Do You Dip or Chew Tobacco: No Hx Alcohol Use: Yes alcohol intake frequency: holidays/special occasions only (once/month) Hx Substance Use: No substance use type: does not use Review of Systems Rare palpitations, on metoprolol, denies change or worsening. Reports chronic lightheadedness if changes position frequently. Infrequent snoring, denies witnessed apneas or sleep studies. Patient denies chest pain, shortness of breath, dyspnea on exertion, reflux, fever, chills, cough, or wheezing. Physical Exam Vital Signs Vitals BP 107/67 P 60 TEMP 98.3 SP02 97% on RA RESP 17 Physical Full cervical extension range of motion without pain Full TMJ range of motion TMD 3.5 finger breaths Mallampati Score 3 Dentition: intact, several caps/crowns throughout-none in front per pt; denies chipped or loose teeth, implants or bridges Lungs: normal respiratory effort. Clear throughout to auscultation, no adventitious breath sounds Cardiac: regular rate and rhythm, no murmurs noted Carotid arteries: negative bruit bilat Lab Results Anesthesia Preop Results Results Anesthesia Widget: WBC 4.43 K/uL (4.8-10.8) L 02/05/22 Hgb 12.6 g/dL (12.0-16.0) 02/05/22 Hct 37.8 % (37-47) 02/05/22 Plt 241 K/uL (130-400) 02/05/22 Na 138 mmol/L (136-145) 02/05/22 K 4.6 mmol/L (3.5-5.1) 02/05/22 Cl 106 mmol/L (98-107) 02/05/22 CO2 28 mmol/L (21-32) 02/05/22 BUN 21 mg/dl (6-23) 02/05/22 Creat 0.55 mg/dl (0.6-1.2) L 02/05/22 Glucose Level 79 mg/dl (70-99(Fasting)) 02/05/22 PT 10.2 Seconds (9.0-12.0) 02/05/22 PTT 27.9 Seconds (21.0-31.0) 02/05/22 INR 1.0 (0.9-1.1) 02/05/22 Blood Type O Positive 02/05/22 Antibody Screen NEGATIVE 02/05/22 Testing Electrocardiogram Date: 02/05/22 Poor data quality Sinus bradycardia, rate 52 bpm RBBB Chest X-Ray Date: 02/05/22 FINDINGS: The lungs are clear. Cardiac silhouette is normal in size. No pleural effusions. No pneumothorax. IMPRESSION: No acute process. Echocardiogram Date: 10/25/16 EF 60-64% Normal LV wall motion, diastolic function Mild mitral regurgitation Mild tricuspid regurgitation
[~2022-02-22 06:28] MED LIST changes: -ACET-1138 PO; -ACET-1256 PO; +ACETAMINOPHEN 500 MG TAB PO SCH; -ASPEC325 PO; -CHOL100010 PO; -CLB100 PO; -CLC100 PO; +FAMOTIDINE 20 MG TAB PO SCH; -FRRG PO; +GABAPENTIN 300 MG CAP PO SCH; +LR 500ML BOLUS, THEN 15ML/HR IV SCH; +LR 60ML/HR IV SCH; -METH-307 PO; -METO25TA3 PO; +METOCLOPRAMIDE HCL 10 MG TABLET PO SCH; -MRLP17X PO; +TRANEXAMIC ACID 1,000 MG **IV Pre-op IV SCH; -ULT50X PO; +ceFAZolin 2000MG 2,000 MG/15 ML SYR IV SCH
[2022-02-22] MEDS ORDERED: BUPIVACAINE 0.5 % 5 MG/1 ML PF 10ML VIAL ONE (06:36)
--- NOTE | 2022-02-22 06:49 | History & Physical Bridge Note ---
Date of Service February 22, 2022 History & Physical Bridge Note I have examined the patient, reviewed the History & Physical and in the interval since the performance of the History & Physical I have noted the following changes of clinical significance: no changes noted
[2022-02-22] MEDS ORDERED: fentaNYL citrate 100 MCG/2 ML VIAL ONE (08:19)
[2022-02-22] MEDS ORDERED: MIDAZOLAM HCL 1 MG/ML 2ML VIAL ONE (08:19)
[2022-02-22] MEDS ORDERED: ATROPINE SULFATE 0.1 MG/ML 10ML SYR IV PRN (08:55)
[2022-02-22] MEDS ORDERED: ONDANSETRON INJ 2 MG/ML 2 ML VIAL IV PRN ×2 (08:55→12:35)
[2022-02-22] MEDS ORDERED: ePHEDrine sulfate 50 MG/ML AMP IV PRN (08:55)
[2022-02-22] MEDS ORDERED: fentaNYL citrate 100 MCG/2 ML VIAL IV PRN (08:55)
[2022-02-22] MEDS ORDERED: EPINEPHrine INJ 1 MG/ML AMP ONE (09:00)
[2022-02-22] MEDS ORDERED: BUPIVACAINE 0.5 % 5 MG/1 ML MPF 30ML VIAL ONE (09:00)
[2022-02-22] MEDS ORDERED: PROPOFOL IV EMULSION 10 MG/ML 20 ML VIAL IV ONE (10:12)
[2022-02-22] MEDS ORDERED: DEXAMETHASONE SOD INJ 4 MG/ML VIAL ONE (10:12)
[2022-02-22] MEDS ORDERED: ePHEDrine sulfate 50 MG/ML SYR ONE (10:12)
[2022-02-22] MEDS ORDERED: ONDANSETRON INJ 2 MG/ML 2 ML VIAL ONE (10:12)
--- NOTE | 2022-02-22 11:11 | Operative Report ---
PG Post Operative Report Pre & Post Diagnosis Operation Date: 02/22/22 08:50 Pre-Op Diagnosis: Left Hip Osteoarthritis Post-Op Diagnosis: Left Hip Osteoarthritis I identified the patient and participated in the time-out.: Yes Procedure Operation Date: 02/22/22 08:50 Actual Procedures p Left Total Hip Arthroplasty(Left) - Francois Jerome MD Surgeon Francois Jerome MD Route Service Representative Curtis Nation PA-C Estimated Blood Loss 200 Findings Consistent with Post-Op Diagnosis Operative findings were advanced left hip DJD. She had grade 4 [id number] disease the femoral head and acetabulum. She had large anterior acetabular osteophyte and some posterior acetabular wall deficiency. Moderate-sized joint effusion. Fluids 1000 cc Specimens Left femoral head sent for pathology Drains None Anesthesia Type Spinal MAC Complications none Disposition Accompanied Patient To Recovery: Yes Indications Patient is a 76-year-old female said a fairly long history of hip problems. She underwent a right hip replaced in the past and is done well from that. Over the past year she developed progressive increasing pain discomfort left hip. She failed all conservative measures. X-rays reveal advanced left hip arthritis. Patient elected to proceed with surgical treatment. Description of Procedure Operative implants consisted of: 1. Biomet G7 size 52 mm acetabular shell. 2. [place] hole washateria attendant. 3. 6.5 cancellous acetabular screws 135 mm length and 120 mm length. 4. Reed Corail Size 10 KLA femoral stem. 5. +5/36 mm ceramic articular ball. 6. Highly cross-linked polyethylene liner with a 52 mm outer diameter and 36 mm inner diameter. The patient was taken the operating, identified, placed on the operating table supine position protectors were properly padded. IV antibiotics tried by anesthesia team. A spinal anesthetic and been implemented holding area. A Miranda catheter was placed in sterile fashion. The patient then placed in the right lateral decubitus position. Axillary roll was placed. Stulberg hip positioner was used for positioning. Left hip and leg were then prepped and draped in usual sterile fashion. A posterior lateral approach to the left hip was then performed through a curvilinear incision centered over the greater trochanter. Sharp dissection was carried through subcutaneous tissue down of the IT band gluteal fascia the IT band gluteal fascia incised longitudinally in line with skin incision. The underlying greater bursa was excised. The piriformis and external rotators along with the posterior hip joint capsule were then released from the posterior aspect hip as a single layer. Great care was taken throughout the procedure protect the sciatic nerve at all times. The hip was internally rotated and dislocated. Femoral neck osteotomy cut was made with Final Cut 12 mm above the lesser trochanter. Femoral head was noted and sent for pathology. The femur was retracted anteriorly. Attention drawn the acetabulum. The acetabular labrum was excised. The pulmonary fat was excised. There was a fairly significant venous bleeder in the inferior aspect of the acetabular area which we spent quite a bit of time cauterizing. We did inject locally with 60 cc of half percent Marcaine with epinephrine. Sequential reaming the acetabular was then performed beginning with a size 43 and progressing up to 51. I reamed a little bit with a 52 reamer and then placed a 52 mm G7 acetabular shell in about 40 degrees lateral opening and 20 degrees of anteversion. Was fixed with two 6.5 cancellous acetabular screws. A large anterior osteophyte was removed. Trial liner was placed. Attention drawn the femur. The proximal femur was entered with a cookie-cutter followed by canal finder. I then broached begin the size 8 and progressed up to 10. I did not think I can get a bigger implant in the without compromise in the femur so we stopped there. The calcar reamer was used smooth and off the calcar. Then trialed the hip and the +5 articular ball recreated perfect stability with fully stood stable in ful l extension and external rotation and flexion to 90 degrees internal rotation over 50 degrees. Soft tissue tension seemed appropriate leg lengths seem equal. We elect to place these implants. All trial implants were removed. An apex eliminator was placed. Highly cross- linked polyethylene liner was placed. A size 10 KLA femoral stem was impacted in position. +5/36 mm ceramic articular ball was placed. Hip was located once again found to be stable. Attention drawn toward closing. Wounds irrigated scope soft pulsatile lavage solution. The posterior capsule and external rotators were then repaired through drill holes in the posterior trochanter as a single layer with #2 Tycron suture. The IT band gluteal fascia then closed in 1 PDS suture in running fashion. Subcutaneous tissue then closed with 2 layers the deep layer 0 Vicryl suture in the subcutaneous tissue with 2-0 Dexon suture in a buried interrupted fashion for skin was closed skin eusebia. Leg was then cleaned and dried a sterile dressing was Xeroform, 4 x 4's, sterile ABD pad and foam tape was applied. Patient was then transferred to the recovery room in stable condition. Patient tolerated procedure well and there were no complications. Curtis Nation, my physician dental laboratory assistant, was present for the entire procedure. His assistance was essential and required for appropriate patient positioning, prepping and draping, surgical exposure, performing the technical details of the operation, placement the implants, closure of the wound, and placement of the sterile bandage. I attest to the content of the Intraoperative Record and any orders documented therein. Any exceptions are noted below.
--- NOTE | 2022-02-22 12:12 | XRay Report ---
XR hip 1V LT w pelvis CLINICAL HISTORY: IN PACU - A/P PELVIS and LATERAL HIP . Status post hip replacement COMPARISON STUDY: 04/19/2017 TECHNIQUE: 2 left hip views FINDINGS: The patient is status post total hip replacement. The prosthetic components are in anatomic alignment with no acute abnormality seen. Skin eusebia are seen from the recent procedure. IMPRESSION: 1. Status post left total hip replacement. ACT 112: Negative or not required by law. Electronically signed by: Prashant Wray M.D. 02/22/2022 12:10 PM
[2022-02-22] MEDS ORDERED: METOCLOPRAMIDE HCL INJ 5 MG/ML 2 ML VIAL IV PRN (12:35)
[2022-02-22] MEDS ORDERED: NON-FORMULARY MEDICATION (Denosumab [Prolia] 60 mg/mL Syringe) SQ SCH (12:35)
[2022-02-22] MEDS ORDERED: MAGNESIUM HYDROXIDE SUSP 30 ML UDC PO PRN (12:35)
[2022-02-22] MEDS ORDERED: HYDROmorphone INJ 0.5 MG/0.5 ML SYR IV PRN (12:35)
[2022-02-22] MEDS ORDERED: ALUMINUM/MAGNESIUM SUSP 30 ML UDC PO PRN (12:35)
[2022-02-22] MEDS ORDERED: SODIUM CHLORIDE 0.9% 1000ML 1,000 ML IV SCH (12:35)
[2022-02-22] MEDS ORDERED: traMADol HCL 50 MG TABLET PO PRN (12:35)
[2022-02-22] MEDS ORDERED: NALOXONE HCL 0.4 MG/1 ML VIAL/CARP IV PRN (12:35)
[2022-02-22] MEDS ORDERED: bisacodyL 10 MG SUPP PR PRN (12:35)
[2022-02-22] MEDS ORDERED: ONDANSETRON 4 MG OD TAB PO PRN (12:53)
[2022-02-22] MEDS: KETOROLAC TROMETHAMINE 15 MG/ML VIAL IV SCH ×2 (13:22→18:20)
[2022-02-22] MEDS: ACETAMINOPHEN 500 MG TAB PO SCH ×2 (14:31→22:27)
--- NOTE | 2022-02-22 15:09 | Anesthesiology Progress Note ---
Date of Service February 22, 2022 Anesthesia Post Procedure Vital Signs Vital Signs: Temp Pulse Pulse Pulse Resp BP BP 02/22/22 14:15 53 L 16 115/70 02/22/22 13:15 49 L 16 133/73 02/22/22 12:41 55 L 16 120/71 02/22/22 12:12 36.4 C L 52 L 16 108/67 02/22/22 11:50 36.4 C L 51 L 14 112/66 02/22/22 11:40 48 L 14 107/61 02/22/22 11:30 36.3 C L 54 L 13 115/61 02/22/22 11:25 54 L 15 115/58 L 02/22/22 11:15 50 L 12 111/59 L 02/22/22 11:05 57 L 22 117/52 L 02/22/22 10:56 36.4 C L 62 14 118/53 L 02/22/22 07:02 37.0 C 65 20 141/77 H Pulse Ox 02/22/22 14:15 97 02/22/22 13:15 99 02/22/22 12:41 95 02/22/22 12:12 99 02/22/22 11:50 96 02/22/22 11:40 98 02/22/22 11:30 98 02/22/22 11:25 98 02/22/22 11:15 100 02/22/22 11:05 100 02/22/22 10:56 99 02/22/22 07:02 98 Pain Intensity Left Hip: Pain Intensity: 1 Transfer of Care Handoff Completed per policy Notes Mental Status: alert / awake / arousable and participated in evaluation Nausea / Vomiting: adequately controlled Pain: adequately controlled Airway Patency, RR, SpO2: stable & adequate BP & HR: stable & adequate Hydration State: stable & adequate Neuraxial Anesthesia: was administered and sensory block is resolving Anesthetic Complications: no major complications apparent and Pt Satisfied with anesthetic care
[2022-02-22] MEDS: ceFAZolin 1000MG 1,000 MG/7.5 ML SYR IV SCH (16:40)
[2022-02-22] MEDS: ASCORBIC ACID 500 MG TAB PO SCH (16:41)
[2022-02-22] MEDS ORDERED: TRANEXAMIC ACID / 0.7% NACL 1,000 MG/100 ML BAG IV SCH (17:00)
[2022-02-22] MEDS: ASPIRIN 81 MG ECTAB PO SCH (20:52)
[2022-02-22] MEDS: oxyCODONE HCL 10 MG TABCR (OxyCONTIN) PO SCH (20:53)
[2022-02-22] MEDS: DOCUSATE SODIUM 100 MG CAP PO SCH (20:53)
[2022-02-22] MEDS ORDERED: METOPROLOL SUCC 25MG EXT REL TAB PO SCH (21:00)
[2022-02-22] MEDS ORDERED: SENNA 8.6 MG TAB PO SCH (21:00)
[2022-02-22] MEDS ORDERED: CHOLECALCIFEROL 1,000 UNITS 25 MCG TAB PO SCH (21:00)
[2022-02-23] MEDS: KETOROLAC TROMETHAMINE 15 MG/ML VIAL IV SCH ×3 (01:55→12:29)
[2022-02-23] MEDS: ceFAZolin 1000MG 1,000 MG/7.5 ML SYR IV SCH (01:55)
[2022-02-23] MEDS: ACETAMINOPHEN 500 MG TAB PO SCH ×2 (05:20→13:47)
[2022-02-23 05:53] LABS: Basophils # (auto) 0.01 K/uL (0-0.2); Basophils % (auto) 0.1 %; Hematocrit (blood only) 30.4 % (37-47); Hemoglobin 10.1 g/dL (12.0-16.0); Immature Granulocytes # (auto) 0.02 K/uL (0.00-0.02); Immature Granulocytes % (auto) 0.2 %; Lymphocytes # (auto) 1.29 K/uL (1.2-3.4); Lymphocytes % (auto) 13.8 %; Mean Corpuscular Hemoglobin 31.8 pg (25-34); Mean Corpuscular Hgb Conc 33.2 g/dL (32-36); Mean Corpuscular Volume 95.6 fL (80-100); Mean Platelet Volume 9.4 fL (7.4-10.4); Monocytes # (auto) 1.01 K/uL (0.11-0.59); Monocytes % (auto) 10.8 %; Neutrophils # (auto) 7.02 K/uL (1.4-6.5); Neutrophils % (auto) 75.1 %; Platelet Count 182 K/uL (130-400); RDW Coefficient of Variation 13.7 % (11.5-14.5); RDW Standard Deviation 48.1 fL (36.4-46.3); Red Blood Count 3.18 M/uL (4.2-5.4); White Blood Count 9.35 K/uL (4.8-10.8)
[2022-02-23 06:10] LABS: BUN Creatinine Ratio 31.8 (10-20); Calcium 7.9 mg/dl (8.5-10.1); Creatinine Clr Calc Pharmacy 105.4 ml/min; Est GFR (African American) 114.4 ml/min; Est GFR (Non-African American) 98.7 ml/min; Potassium 4.5 mmol/L (3.5-5.1)
[2022-02-23] MEDS ORDERED: dexAMETHasone 10 MG in SYRINGE 0 ML IV SCH (08:00)
[2022-02-23] MEDS: ASCORBIC ACID 500 MG TAB PO SCH (08:15)
[2022-02-23] MEDS: DOCUSATE SODIUM 100 MG CAP PO SCH (08:15)
[2022-02-23] MEDS: ASPIRIN 81 MG ECTAB PO SCH (08:15)
[2022-02-23] MEDS: oxyCODONE HCL 10 MG TABCR (OxyCONTIN) PO SCH (08:18)
[2022-02-23] MEDS ORDERED: MULTIVITAMIN TAB PO SCH (09:00)
[2022-02-23] MEDS ORDERED: DOCUSATE SODIUM/SENNA 50/8.6MG TAB PO SCH (09:00)
--- NOTE | 2022-02-23 15:23 | Progress Notes ---
DATE OF SERVICE: 02/23/2022. SUBJECTIVE: A 76-year-old female postoperative day 1 from left hip replacement. She is doing well. Pain is controlled. Therapy went well. Anxious to get home. No chest pain or shortness of breath. Not feeling dizzy or lightheaded. OBJECTIVE: VITAL SIGNS: Temperature 36.8. Vital signs are stable. GENERAL: Shows a pleasant, elderly female. She is sitting up in her bedside chair, looks comfortabl e. LUNGS: Clear to auscultation. HEART: Regular rate and rhythm. ABDOMEN: Soft, nontender, nondistended. EXTREMITIES: Grossly neurovascularly intact except as follows. Examination of the left leg reveals the dressing to be clean, dry and intact. Leg lengths are equal. She can dorsiflex and plantarflex her foot appropriately. NEUROLOGIC: She is neurologically intact. LABORATORY DATA: Hemoglobin 10.1. Hematocrit 30.4. Electrolytes are stable. ASSESSMENT: A 76-year-old white female postoperative day 1 from left hip replacement, doing well. P ain is controlled. Hip is located. She is neurologically intact. Therapy went well. PLAN: 1. DVT prophylaxis includes thigh-high TEDs, SCDs, and aspirin twice a day. 2. PT, OT, weightbear as tolerated. Left total hip protocol. 3. Pain control, doing well with current pain regimen. 4. Disposition: Plan to discharge to home with some home health likely later today. Job ID: [id number]
--- NOTE | 2022-02-26 19:59 | Discharge Summary ---
Date of Service February 26, 2022 Discharge Data Procedures Performed Operation Date: 02/22/22 08:50 Actual Procedures p Left Total Hip Arthroplasty(Left) - Francois Jerome MD Hospital Course (1) S/P total left hip arthroplasty: Reva is a 76 year old patient admitted on 02/22/22 and underwent total hip arthroplasty. She tolerated the procedure well and there were no complications. Transferred to the PACU post op and later to the orthopedic floor for further care. She was given ancef for antibiotic prophylaxis. She was also given MAYTE stockings, SCDs, and aspirin for DVT prophylaxis. Hemoglobin, hematocrit, and vital signs were monitored during her hospital stay and remained stable. Did not require any blood transfusions. There were no complications during her hospital stay. By post op day #1 the patient was tolerating a regular diet, pain was reasonably controlled with oral pain medicine, and she was participating in physical therapy. On post op day #1 the patient was discharged home and set up with home health care. She was given printed discharge instructions including prescriptions for extra strength tylenol, aspirin, toradol, zofran, and tramadol. Continue physical therapy, weight bearing as tolerated. Continue hip precautions. Continue MAYTE stockings. Follow up approximately 2 weeks post op or sooner if there are problems or concerns. Coding Level of Care Code None Diagnoses S/P total left hip arthroplasty Z96.642
== END 2022-02-23 14:29 | disposition home health service (06) ==
LOC: ASU 06:28 → 3E 06:28

== ENCOUNTER 2025-07-21 05:23 | Observation (INO) ==
--- NOTE | 2025-07-21 07:22 | XRay Report ---
EXAM: XR hip RT 2V w pelvis CLINICAL HISTORY: Fall, pain TECHNIQUE: X-ray images of the right hip joints in AP and lateral projection and pelvis AP view. COMPARISON: Compared to previous study done at 05/02/2025. FINDINGS: Depressed fracture of the right superior pubic ramus (newly developed). Evidence of previous operative interference with bilateral total hip replacement. No evidence of prosthetic loosening or infection. Sacroiliac joints appear normal and unremarkable. No evidence of sacroiliitis or significant degenerative changes. Symphysis Pubis: Suspected depressed fracture of the right superior pubic ramus. Soft Tissues: Visualized soft tissues are normal and unremarkable. No soft tissue swelling, calcifications, or masses. Additional Findings: No other significant abnormalities noted. IMPRESSION: Depressed fracture of the right superior pubic ramus (newly developed). Disclaimer: A subtle bone abnormality or fracture may not be readily apparent on X-rays, thus clinical correlation and further imaging including follow-up CT, MRI, or follow-up X-rays are advised as needed. Electronically signed by Francois Stallings 07-21-2025 07:22 AM
[2025-07-21] MEDS: KETOROLAC TROMETHAMINE 15 MG/ML VIAL IV ONE (08:02)
[2025-07-21] MEDS: ACETAMINOPHEN 1,000 MG/100 ML VIAL IV STA (08:06)
[2025-07-21 08:07] LABS: Hematocrit (blood only) 33.5 % (37.0-47.0); Hemoglobin 11.2 g/dl (12.0-16.0); Immature Granulocytes # (auto) 0.02 K/uL (0.01-0.20); Immature Granulocytes % (auto) 0.3 %; Mean Corpuscular Hemoglobin 31.4 pg (25.0-34.0); Mean Corpuscular Volume 93.8 fL (80.0-100.0); Platelet Count 188 K/uL (130-400); RDW Standard Deviation 47.8 fL (36.4-46.3); Red Blood Count 3.57 M/uL (4.20-5.40); White Blood Count 6.42 K/ul (4.8-10.8)
--- NOTE | 2025-07-21 08:19 | XRay Report ---
RIGHT SHOULDER 4 VIEWS CLINICAL HISTORY: Fall with right shoulder injury. FINDINGS: 4 views of the right shoulder are obtained. No prior studies are available for comparison a t the time of dictation. The skeletal structures are osteopenic. There is no radiographic evidence of right shoulder fracture or dislocation. Mild productive degenerative change is seen at the acromiocl avicular joint. There is moderate to severe osteoarthritic change at the glenohumeral articulation. B charline overgrowth is seen along the inferior aspect of the humeral head. There is a large degenerative g eode seen within the glenoid. The overlying soft tissues are within normal limits. The imaged right l zina parenchyma appears clear. IMPRESSION: No acute bony abnormality is identified. Electronically signed by: Yves Campo M.D. 07/21/2025 8:18 AM
[2025-07-21 08:21] LABS: Anion Gap 6.0 (3-11); Blood Urea Nitrogen 23.0 mg/dl (6-23); Calcium 9.2 mg/dl (8.6-10.3); Carbon Dioxide 27.0 mmol/L (21-32); Chloride 109.0 mmol/L (98-107); Creatinine Clr Calc Pharmacy 90.9 ml/min; Glucose 94.0 mg/dl (70-99(Fasting)); Potassium 3.3 mmol/L (3.5-5.1); Sodium 142.0 mmol/L (136-145)
--- NOTE | 2025-07-21 08:52 | Emergency Department Note ---
Impression & Plan Fracture of superior pubic ramus, Inability to ambulate due to hip ED Provider Note NAME: SERGO NARVAEZ AGE: 80 SEX: F : 1945 ARRIVES VIA: Walk-In INFORMANT: Patient, ED PROVIDER(S): Jagdish Mcneil MD CHIEF COMPLAINT: Right hip pain HPI: This is a 80-year-old female present for right hip pain after a fall yesterday. Patient notes that around 6 PM she tripped and fell outside on sidewalk. She did not hit her head, no LOC and no blood thinners. She notes pain with walking and ambulating at this time. She reports feeling there is a golf ball in her right hip ROS: See above HPI for pertinent positives & negatives. A total of 10 systems reviewed and were otherwise negative. PAST MEDICAL HISTORY: See Below PAST SURGICAL HISTORY: See Below FAMILY HISTORY: See Below SOCIAL HISTORY: See Below HOME MEDICATIONS: See Below ALLERGIES: See Below VITALS: See Below PHYSICAL EXAMINATION: General: resting comfortably in no acute distress Head: Normocephalic and atraumatic Eyes: Normal inspection, extraocular muscles intact Ear, nose, throat: Normal external exam Neck: Normal range of motion Respiratory: lungs clear to auscultation bilaterally Cardiovascular: Regular rate/rhythm, no murmur GI: soft, nontender, no guarding or rebound, right hip ecchymosis Extremities: nontender, moves all extremities Neuro: The patient awake and alert, appropriately conversive, no focal deficits, symmetric faces Skin: Warm, dry, and intact MEDICAL DECISION MAKING: This is 80-year-old female present for right hip pain after fall. X-ray ordered at triage. Otherwise we will do x-ray of the right shoulder she also complains of slight pain here with full range of motion and nontender exam - Hip x-ray reveals a superior pubic rami fracture with displacement as independently interpreted by me - Patient had difficulty ambulating, unsteady on feet with excruciating pain - Shoulder x-ray reveals no osseous fracture or dislocation -Due to patient's inability to ambulate, will admit the patient for PT/OT and possible placement Differential diagnosis: Hip fracture, pelvic fracture, shoulder fracture Independent History obtained from: Diagnostics interpreted by me: ECG: None Cardiac Monitoring: An order was placed for continuous cardiac monitoring. The monitor shows a rate of 61 with sinus rhythm. 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 Grandmother FHx: colon cancer Other FHx: colonic polyps No family history of adverse response to anesthesia Social History Smoking Status: Never smoker Second Hand Exposure: Yes (In the past); Do You Dip or Chew Tobacco: No; Hx Alcohol Use: No Hx Substance Use: No Preferred Language: Azeri Communication Ability: Effective Batch Maker Required: No Beliefs That Will Affect Care: None marital status: Current Living Situation: Spouse Other Information That Helps Us Care for You: No Feels Safe at Home: Yes Safety Concerns: Feels Safe At This Time Assistive Devices: Glasses and Hearing Aid - Bilateral Allergies Allergies Allergy/AdvReac Type Severity Reaction Status Date / Time No Known Allergies Allergy Verified 07/21/25 08:55 Home Meds Home Medications Medication Instructions Recorded Confirmed metoprolol succinate 25 mg 12.5 mg PO PM 12/03/21 07/21/25 tablet,extended release 24 hr denosumab 60 mg/mL subcutaneous 60 mg subcut UD 12/04/21 07/21/25 syringe (Prolia) acetaminophen 325 mg tablet 650 mg PO Q6H PRN Pain 01/21/25 07/21/25 celecoxib 100 mg capsule (Celebrex) 100 mg PO QAM 01/21/25 07/21/25 cholecalciferol (vitamin D3) 25 2,000 unit PO QPM 01/21/25 07/21/25 mcg (1,000 unit) tablet (Vitamin D3) Previous Rx's Medication Instructions Recorded 3-in-1 Commode #1 ea 01/28/22 3-in-1 Commode #1 ea 01/28/22 Results & Data (ED) Vital Signs Vital Signs - 24 hr 07/21/25 05:26 07/21/25 07:38 07/21/25 09:12 Temperature 36.6 C 36.8 C Temperature Source Temporal Artery Scan Oral Pulse Rate 92 H Pulse Rate [Right Finger] 86 69 Pulse Rhythm [Right Finger] Regular Respiratory Rate 18 18 18 Respiratory Effort / Characteristics Non-Labored Non-Labored Respiratory Depth Normal Normal Respiratory Pattern Regular Regular Blood Pressure 184/101 H Blood Pressure [Left Arm] 155/89 H 139/79 Blood Pressure Mean 128 Blood Pressure Mean [Left Arm] 111 99 Blood Pressure Position Sitting Blood Pressure Position [Left Arm] Lying Lying Pulse Oximetry 100 98 99 Oxygen Delivery Method Room Air Room Air Room Air Sepsis Recent Fever Within 48 Hours No Sepsis New/Unexplained Change in Mental Status N/A Sepsis Action Taken by Nursing No Action Required Laboratory Data 07/21/25 07:35 07/21/25 07:35 Lab Results 07/21/25 Range/Units 07:35 WBC 6.42 (4.8-10.8) K/ul RBC 3.57 L (4.20-5.40) M/uL Hgb 11.2 L (12.0-16.0) g/dl Hct 33.5 L (37.0-47.0) % MCV 93.8 (80.0-100.0) fL MCH 31.4 (25.0-34.0) pg MCHC 33.4 (32.0-36.0) g/dL RDW Std Deviation 47.8 H (36.4-46.3) fL RDW Coeff of Rashi 13.9 (11.5-14.5) % Plt Count 188 (130-400) K/uL MPV 9.6 (9.4-12.4) fL Immature Gran % (Auto) 0.3 % Neut % (Auto) 63.9 % Lymph % (Auto) 24.9 % Kimble % (Auto) 10.1 % Eos % (Auto) 0.5 % Baso % (Auto) 0.3 % Neut # (Auto) 4.10 (1.40-6.50) K/uL Lymph # (Auto) 1.60 (1.20-3.40) K/uL Kimble # (Auto) 0.65 H (0.11-0.59) K/uL Eos # (Auto) 0.03 (0.00-0.50) K/uL Baso # (Auto) 0.02 (0.00-0.20) K/uL Immature Gran # (Auto) 0.02 (0.01-0.20) K/uL Sodium 142 (136-145) mmol/L Potassium 3.3 L (3.5-5.1) mmol/L Chloride 109 H (98-107) mmol/L Carbon Dioxide 27 (21-32) mmol/L Anion Gap 6 (3-11) BUN 23 (6-23) mg/dl Creatinine 0.47 L (0.6-1.2) mg/dl Est Cr Clr Drug Dosing 90.9 ml/min eGFR 96.78 BUN/Creatinine Ratio 48.9 H (10-20) Glucose 94 (70-99(Fasting)) mg/dl Calcium 9.2 (8.6-10.3) mg/dl Administered Medications Acetaminophen (Acetaminophen 500 Mg Tab) 1,000 mg PO TID REGINE Stop: 08/20/25 13:59 Last Admin: 07/21/25 14:36 Dose: 1,000 mg Documented By: AKOSUA Celecoxib (Celebrex 200 Mg Cap) 200 mg PO BID REGINE Stop: 08/20/25 13:19 Last Admin: 07/21/25 14:37 Dose: 200 mg Documented By: AKOSUA Polyethylene Glycol (Polyethylene (Miralax) 17 Gm Pack) 17 gm PO DAILY REGINE Stop: 08/20/25 13:19 Last Admin: 07/21/25 14:37 Dose: Not Given Documented By: AKOSUA Discontinued Medications Acetaminophen (Ofirmev) 1,000 mg in 100 mls @ 400 mls/hr IV NOW STA Stop: 07/21/25 07:49 Last Infusion: 07/21/25 08:28 Dose: Infused Documented By: jackelyn Admin: 07/21/25 08:06 Dose: 400 mls/hr Documented By: jackelyn Ketorolac Tromethamine (Ketorolac Tromethamine 15 Mg/Ml Vial) 15 mg IV NOW ONE Stop: 07/21/25 07:36 Last Admin: 07/21/25 08:02 Dose: Not Given Documented By: KELI Potassium Chloride (Potassium Chloride Crtab 20 Meq Tabcr) 40 meq PO NOW STA Stop: 07/21/25 09:10 Last Admin: 07/21/25 11:03 Dose: Not Given Documented By: KELI Potassium Chloride (Potassium Chloride 20 Meq/15 Ml Udc) 40 meq PO NOW STA Stop: 07/21/25 10:00 Last Admin: 07/21/25 10:21 Dose: 40 meq Documented By: jackelyn Imaging Data Radiologist's Impression: Hip/Pelvis X-Ray 07/21/25 05:30 EXAM: XR hip RT 2V w pelvis CLINICAL HISTORY: Fall, pain TECHNIQUE: X-ray images of the right hip joints in AP and lateral projection and pelvis AP view. COMPARISON: Compared to previous study done at 05/02/2025. FINDINGS: Depressed fracture of the right superior pubic ramus (newly developed). Evidence of previous operative interference with bilateral total hip replacement. No evidence of prosthetic loosening or infection. Sacroiliac joints appear normal and unremarkable. No evidence of sacroiliitis or significant degenerative changes. Symphysis Pubis: Suspected depressed fracture of the right superior pubic ramus. Soft Tissues: Visualized soft tissues are normal and unremarkable. No soft tissue swelling, calcifications, or masses. Additional Findings: No other significant abnormalities noted. IMPRESSION: Depressed fracture of the right superior pubic ramus (newly developed). Disclaimer: A subtle bone abnormality or fracture may not be readily apparent on X-rays, thus clinical correlation and further imaging including follow-up CT, MRI, or follow-up X-rays are advised as needed. Electronically signed by Francois Stallings 07-21-2025 07:22 AM Shoulder X-Ray 07/21/25 07:47 RIGHT SHOULDER 4 VIEWS CLINICAL HISTORY: Fall with right shoulder injury. FINDINGS: 4 views of the right shoulder are obtained. No prior studies are available for comparison at the time of dictation. The skeletal structures are osteopenic. There is no radiographic evidence of right shoulder fracture or dislocation. Mild productive degenerative change is seen at the acromioclavicular joint. There is moderate to severe osteoarthritic change at the glenohumeral articulation. Bony overgrowth is seen along the inferior aspect of the humeral head. There is a large degenerative geode seen within the glenoid. The overlying soft tissues are within normal limits. The imaged right lung parenchyma appears clear. IMPRESSION: No acute bony abnormality is identified. Electronically signed by: Yves Campo M.D. 07/21/2025 8:18 AM Discharge Plan Visit Data Chief Complaint: Fall Stated Complaint: FALL, RT HIP PAIN ED Provider: Jagdish Mcneil Discharge Problem: Fracture of superior pubic ramus, Inability to ambulate due to hip Patient Disposition: Admitted As Inpatient Condition: Fair Discharge Instructions Interventions: ED Discharge Assessment Last Done: 07/21/25 12:50 Discharge Problem: Fracture of superior pubic ramus Qualifiers: Encounter type: initial encounter Fracture type: closed Laterality: right Q ualified Code(s): S32.511A - Fracture of superior rim of right pubis, initial encounter for closed fracture
--- NOTE | 2025-07-21 09:37 | History & Physical Report ---
Date of Service July 21, 2025 Assessment & Plan (1) Fall from standing: (2) Fracture of right superior pubic ramus: (3) Contusion of right shoulder, initial encounter: (4) History of bilateral hip replacements: (5) History of arthroplasty of left shoulder: (6) Ileal cancer: (7) History of resection of small bowel: Plan Patient 80-year-old female with with superior pubic ramus fracture secondary to fall from standing. Now with uncontrolled pain and ambulatory function Patient requires hospital level care due to the fact that she is unable to safely ambulate at home and needs pain control Care for the hospital Schedule Tylenol for pain control Increase her Celebrex and scheduled for pain control As needed oxycodone PT OT evaluation Case management for discharge planning Orthopedic consultation for reassurance that everything appears stable as far as her hip replacements in the setting of this new fracture. History of Present Illness Chief Complaint: Fell yesterday with right hip and buttock pain Primary Care Provider: Altagracia Mcneil MD Patient is a 80-year-old female overall in fairly good health and very active. Patient was out walking in her neighborhood and tripped and fell over some landscaping equipment in the yard. She immediately went down on her right side. She did not hit her head and did not lose consciousness. She was able to get herself up off the ground and get herself to the house. However, this morning she was extreme pain very difficult to ambulate and came to emergency room for evaluation. In the emergency room laboratory workup significant for some low potassium. Shoulder x-ray showed no fracture pelvic x-ray did show a superior pubic rami fracture. No definitive hip fracture. Due to her pain and ambulatory function, she was referred to our service for further evaluation. Time of my evaluation patient states she is comfortable while lying down. States that the pain is pretty excruciating when she tries to stand and requires significant assistance. States that it feels like she has a a ball up and sort of her posterior deep hip and buttock area. Otherwise she states has been feeling well. No fever or chills, no cough cold symptoms, no chest pain, no shortness of breath. Been eating and drinking well. Has some chronic issues with constipation with a history of intestinal cancer. No urinary complaints. Right shoulder is sore. She has noticed already some swelling and bruising of her right lateral hip but no other swollen or tender joints. Confirm she did not lose consciousness did not feel lightheaded or dizzy it was purely a mechanical fall tripping over a landscaping structure in the yard. She is concerned that she does have bilateral hip replacements and wanted to be sure that they were intact as well. Allergies Allergy/AdvReac Type Severity Reaction Status Date / Time No Known Allergies Allergy Verified 07/21/25 08:55 Home Medications Medication Instructions Recorded Confirmed Type metoprolol succinate 25 mg 12.5 mg PO PM 12/03/21 07/21/25 History tablet,extended release 24 hr denosumab 60 mg/mL subcutaneous 60 mg subcut UD 12/04/21 07/21/25 History syringe (Prolia) 3-in-1 Commode #1 ea 01/28/22 09/25/24 Rx 3-in-1 Commode #1 ea 01/28/22 09/25/24 Rx acetaminophen 325 mg tablet 650 mg PO Q6H PRN Pain 01/21/25 07/21/25 History celecoxib 100 mg capsule (Celebrex) 100 mg PO QAM 01/21/25 07/21/25 History cholecalciferol (vitamin D3) 25 2,000 unit PO QPM 01/21/25 07/21/25 History mcg (1,000 unit) tablet (Vitamin D3) Past Med/Surg History Problem List (Updated 07/21/25 @ 09:40 by Steven Sanchez DO) History of resection of small bowel History of arthroplasty of left shoulder History of bilateral hip replacements Contusion of right shoulder, initial encounter Fracture of right superior pubic ramus Fall from standing 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 Grandmother FHx: colon cancer Other FHx: colonic polyps No family history of adverse response to anesthesia Social History Smoking Status: Never smoker Second Hand Exposure: Yes (parents smoked); Do You Dip or Chew Tobacco: No; Hx Alcohol Use: No Hx Substance Use: No Preferred Language: Monegasque Communication Ability: Effective Hide Stretcher Hand Required: No Beliefs That Will Affect Care: None marital status: Current Living Situation: Spouse Feels Safe at Home: Yes Assistive Devices: Glasses and Hearing Aid - Bilateral Review of Systems Review of Systems: Pertinent positive and negative review of systems as mentioned in the HPI Physical Exam Physical Exam: Constitutional: Alert, mild distress due to pain nontoxic HEENT: Mucous membranes moist. Sclera clear Neck: Soft, no adenopathy Lungs: Clear to auscultation, decreased, no wheezes rales or rhonchi CV: S1-S2, regular, systolic murmur Abdomen: Soft, nontender, nondistended Extremities: No significant edema Musculoskeletal: Right shoulder with some tenderness and mild contusion with range of motion. Right lateral hip with contusion and swelling, pain with range of motion testing Neuro: No focal deficits Psych: Cooperative, normal mood Results & Data Results & Data Vital Signs (Past 12 Hours) Vital Signs Temp Pulse Pulse Resp BP BP Pulse Ox 07/21/25 09:12 69 18 139/79 99 07/21/25 07:38 36.8 C 86 18 155/89 H 98 07/21/25 05:26 36.6 C 92 H 18 184/101 H 100 O2 Del Method 07/21/25 09:12 Room Air 07/21/25 07:38 Room Air 07/21/25 05:26 Room Air Diagnostic Findings Reviewed imaging, laboratory and diagnostic studies. Pertinent findings as below. Shoulder x-ray no acute fractures Pelvic x-ray superior pubic ramus fracture Hemoglobin 12.2 Potassium 3.3 Creatinine 0.47 Code Status & VTE Plan VTE Prophylaxis Plan VTE Prophylaxis will be ordered: Yes
[2025-07-21] MEDS: POTASSIUM CHLORIDE 20 MEQ/15 ML UDC PO STA (10:21)
--- NOTE | 2025-07-21 10:52 | Orthopedic Consultation ---
Date of Service July 21, 2025 Assessment & Plan (1) Fracture of right superior pubic ramus: * Case/imaging reviewed and discussed with Dr Wise * Recommend closed management of right superior pubic rami fracture * Weight bearing status: WBAT * Activity as tolerated, anticipate patient will need walker for some time * Daily treatment: Physical Therapy/ Occupational Therapy per protocol * Pain control * Disposition: Home * Remainder care per primary team * Outpatient follow-up for repeat x-rays in the coming weeks * Will follow peripherally, please contact with further concerns History of Present Illness Reason for Consultation: Right hip pain Requesting Physician: . Patient is a 80y/o female with right hip pain. PMH including right bundle branch block, ileal cancer s/p small bowel resection. Surgical history including bilateral hip replacement with Dr. Jerome, left shoulder replacement with Dr. Wise. Presents to hospital with right hip pain after a fall. Per patient she was walking her dog yesterday when she tripped on a garden border and fell landing on her right side. Initially had moderate soreness of the hip which has increased overnight, now significant difficulty ambulating on the right leg. Current workup including x-ray right hip/pelvis demonstrating right superior pubic rami fracture. Admitted to hospital medicine team secondary to ambulatory dysfunction. Orthopedics consulted for management recommendations. At time of exam patient lying comfortably in bed, no acute distress. Reports moderate pain of the right hip at rest that increases with attempted ambulation. Denies tingling or numbness of the right lower extremity. No assistive devices at baseline.. Allergies Allergy/AdvReac Type Severity Reaction Status Date / Time No Known Allergies Allergy Verified 07/21/25 08:55 Home Medications Medication Instructions Recorded Confirmed Type metoprolol succinate 25 mg 12.5 mg PO PM 12/03/21 07/21/25 History tablet,extended release 24 hr denosumab 60 mg/mL subcutaneous 60 mg subcut UD 12/04/21 07/21/25 History syringe (Prolia) 3-in-1 Commode #1 ea 01/28/22 09/25/24 Rx 3-in-1 Commode #1 ea 01/28/22 09/25/24 Rx acetaminophen 325 mg tablet 650 mg PO Q6H PRN Pain 01/21/25 07/21/25 History celecoxib 100 mg capsule (Celebrex) 100 mg PO QAM 01/21/25 07/21/25 History cholecalciferol (vitamin D3) 25 2,000 unit PO QPM 01/21/25 07/21/25 History mcg (1,000 unit) tablet (Vitamin D3) Past Med/Surg History Problem List (Updated 07/21/25 @ 09:40 by Steven Sanchez DO) History of resection of small bowel History of arthroplasty of left shoulder History of bilateral hip replacements Contusion of right shoulder, initial encounter Fracture of right superior pubic ramus Fall from standing 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 Grandmother FHx: colon cancer Other FHx: colonic polyps No family history of adverse response to anesthesia Social History Smoking Status: Never smoker Second Hand Exposure: Yes (parents smoked); Do You Dip or Chew Tobacco: No; Hx Alcohol Use: No Hx Substance Use: No Preferred Language: Cam[place]onian Communication Ability: Effective Biochemistry Professor Required: No Beliefs That Will Affect Care: None marital status: Current Living Situation: Spouse Feels Safe at Home: Yes Assistive Devices: Glasses and Hearing Aid - Bilateral Review of Systems All systems reviewed & are unremarkable except as noted in HPI & below. Physical Exam . * General: Alert and oriented, no acute distress * Constitutional: well-developed, well-nourished. * Respiratory: Normal respiratory effort, no distress * Gastrointestinal: No tenderness to palpation, no rigidity or guarding. * Skin: No rash or lesion. * Neurologic: Grossly normal * Musculoskeletal: Right hip with no deformity or overlying skin changes. Otherwise no obvious deformity or overlying skin changes to the right leg. TTP anterior hip and pubic region, diffusely proximal thigh. Otherwise no specific tenderness of the distal thigh, knee, lower leg. Mild pain with logroll, otherwise no pain with ROM hip flexion, IR/ER. Pelvis stable, no pain with SI joint compression or distraction. AROM foot/ankle intact. Sensation intact plantar/dorsal foot. Brisk capillary refill. Results & Data Results & Data Laboratory Results . Diagnostic Findings . Hip/Pelvis X-Ray 07/21/25 05:30 EXAM: XR hip RT 2V w pelvis CLINICAL HISTORY: Fall, pain TECHNIQUE: X-ray images of the right hip joints in AP and lateral projection and pelvis AP view. COMPARISON: Compared to previous study done at 05/02/2025. FINDINGS: Depressed fracture of the right superior pubic ramus (newly developed). Evidence of previous operative interference with bilateral total hip replacement. No evidence of prosthetic loosening or infection. Sacroiliac joints appear normal and unremarkable. No evidence of sacroiliitis or significant degenerative changes. Symphysis Pubis: Suspected depressed fracture of the right superior pubic ramus. Soft Tissues: Visualized soft tissues are normal and unremarkable. No soft tissue swelling, calcifications, or masses. Additional Findings: No other significant abnormalities noted. IMPRESSION: Depressed fracture of the right superior pubic ramus (newly developed). Disclaimer: A subtle bone abnormality or fracture may not be readily apparent on X-rays, thus clinical correlation and further imaging including follow-up CT, MRI, or follow-up X-rays are advised as needed. Electronically signed by Francois Stallings 07-21-2025 07:22 AM Shoulder X-Ray 07/21/25 07:47 RIGHT SHOULDER 4 VIEWS CLINICAL HISTORY: Fall with right shoulder injury. FINDINGS: 4 views of the right shoulder are obtained. No prior studies are available for comparison at the time of dictation. The skeletal structures are osteopenic. There is no radiographic evidence of right shoulder fracture or dislocation. Mild productive degenerative change is seen at the acromioclavicular joint. There is moderate to severe osteoarthritic change at the glenohumeral articulation. Bony overgrowth is seen along the inferior aspect of the humeral head. There is a large degenerative geode seen within the glenoid. The overlying soft tissues are within normal limits. The imaged right lung parenchyma appears clear. IMPRESSION: No acute bony abnormality is identified. Electronically signed by: Yves Campo M.D. 07/21/2025 8:18 AM PG Care Time/CCT Total # of Minutes Spent Total Time Spent with Patient: Total time spent is greater than 50% in coordination of care (as documented) at patient's floor/unit and/or counseling patient: Coding [place] [address] IN/OBS CONSULT LVL 3,45M Patient Type Established History Problem Focused Exam Problem Focused Medical Decision Making Straight Forward Diagnoses Fracture of right superior pubic ramus S32.511A
[2025-07-21] MEDS: POTASSIUM CHLORIDE CRTAB 20 MEQ TABCR PO STA (11:03)
[2025-07-21] MEDS ORDERED: ONDANSETRON INJ 2 MG/ML 2 ML VIAL IV PRN (13:20)
[2025-07-21] MEDS ORDERED: MAGNESIUM HYDROXIDE SUSP 30 ML UDC PO PRN (13:20)
[2025-07-21] MEDS ORDERED: ALUMINUM/MAGNESIUM SUSP 30 ML UDC PO PRN (13:20)
[2025-07-21] MEDS: ACETAMINOPHEN 500 MG TAB PO SCH (14:36)
[2025-07-21] MEDS: POLYETHYLENE (MIRALAX) 17 GM PACK PO SCH (14:37)
[2025-07-21] MEDS: CeleBREX 200 MG CAP PO SCH (14:37)
[2025-07-21] MEDS: POTASSIUM CHLORIDE 20 MEQ/15 ML UDC PO ONE (16:40)
[2025-07-21] MEDS: CHOLECALCIFEROL 25 MCG (1000 UNITS) TAB PO SCH (21:39)
[2025-07-21] MEDS: METOPROLOL SUCC 25MG EXT REL TAB PO SCH (21:39)
[2025-07-22 07:15] LABS: Hematocrit (blood only) 31.9 % (37.0-47.0); Hemoglobin 10.6 g/dl (12.0-16.0); Mean Corpuscular Hemoglobin 31.0 pg (25.0-34.0); Mean Corpuscular Volume 93.3 fL (80.0-100.0); Platelet Count 181 K/uL (130-400); RDW Standard Deviation 47.9 fL (36.4-46.3); Red Blood Count 3.42 M/uL (4.20-5.40); White Blood Count 5.63 K/ul (4.8-10.8)
[2025-07-22 07:47] LABS: Anion Gap 5.0 (3-11); Blood Urea Nitrogen 15.0 mg/dl (6-23); Calcium 8.7 mg/dl (8.6-10.3); Carbon Dioxide 28.0 mmol/L (21-32); Chloride 108.0 mmol/L (98-107); Creatinine Clr Calc Pharmacy 77.6 ml/min; Glucose 86.0 mg/dl (70-99(Fasting)); Potassium 4.0 mmol/L (3.5-5.1); Sodium 141.0 mmol/L (136-145)
[2025-07-22 08:16] VITALS: BP 147/77; RESP 16; TEMP 97.7; O2SAT 96
--- NOTE | 2025-07-22 10:56 | Discharge Summary ---
Discharge Summary Date of Service July 22, 2025 Principal Dx & Hospital Course #1 = Principal Diagnosis (1) Fall from standing: (2) Fracture of right superior pubic ramus: (3) Contusion of right shoulder, initial encounter: (4) History of bilateral hip replacements: (5) History of arthroplasty of left shoulder: (6) Ileal cancer: (7) History of resection of small bowel: Plan Patient 80-year-old female who presented to emergency room after a fall while out walking in the neighborhood. Imaging revealed a pubic ramus fracture and right shoulder contusion. Patient was observed in the hospital. Her pain was managed with Tylenol and Celebrex. On the morning of discharge vital signs are stable. Laboratory studies were stable. She was up and ambulating on her own with minimal pain. She was seen by orthopedics due to history of bilateral hip replacement and now with this pubic ramus fracture. They evaluate the patient and felt that she could continue to weight-bear as tolerated. She already has assistive device at home. Has not required any narcotic medication for pain control. Feels quite confident being able to care for self at home has assistance of her . She will be discharged home to follow-up with outpatient providers. Notes For Next Care Provider Continue to monitor chronic medical issues Medication Changes From Visit Celebrex dose increased to twice a day Tylenol scheduled for pain control Admission HPI Per Admitting Provider Patient is a 80-year-old female overall in fairly good health and very active. Patient was out walking in her neighborhood and tripped and fell over some landscaping equipment in the yard. She immediately went down on her right side. She did not hit her head and did not lose consciousness. She was able to get herself up off the ground and get herself to the house. However, this morning she was extreme pain very difficult to ambulate and came to emergency room for evaluation. In the emergency room laboratory workup significant for some low potassium. Shoulder x-ray showed no fracture pelvic x-ray did show a superior pubic rami fracture. No definitive hip fracture. Due to her pain and ambulatory function, she was referred to our service for further evaluation. Time of my evaluation patient states she is comfortable while lying down. States that the pain is pretty excruciating when she tries to stand and requires significant assistance. States that it feels like she has a a ball up and sort of her posterior deep hip and buttock area. Otherwise she states has been feeling well. No fever or chills, no cough cold symptoms, no chest pain, no shortness of breath. Been eating and drinking well. Has some chronic issues with constipation with a history of intestinal cancer. No urinary complaints. Right shoulder is sore. She has noticed already some swelling and bruising of her right lateral hip but no other swollen or tender joints. Confirm she did not lose consciousness did not feel lightheaded or dizzy it was purely a mechanical fall tripping over a landscaping structure in the yard. She is concerned that she does have bilateral hip replacements and wanted to be sure that they were intact as well. Admission Exam Per Admitting Provider See H&P Discharge Exam Constitutional: Alert, nontoxic, no acute distress HEENT: Mucous membranes moist. Lungs: Clear to auscultation, decreased, no wheezes rales or rhonchi CV: S1-S2, regular Abdomen: Soft, nontender, nondistended Extremities: No significant edema Musculoskeletal: Pain well-controlled able to get up and out of a chair to standing without any assistance Neuro: No focal deficits Psych: Cooperative, normal mood Updated Medication List Medication Instructions Recorded Confirmed Type metoprolol succinate 25 mg 12.5 mg PO PM 12/03/21 07/21/25 History tablet,extended release 24 hr denosumab 60 mg/mL subcutaneous 60 mg subcut UD 12/04/21 07/21/25 History syringe (Prolia) 3-in-1 Commode #1 ea 01/28/22 09/25/24 Rx 3-in-1 Commode #1 ea 01/28/22 09/25/24 Rx acetaminophen 325 mg tablet 650 mg PO Q6H PRN Pain 01/21/25 07/21/25 History cholecalciferol (vitamin D3) 25 2,000 unit PO QPM 01/21/25 07/21/25 History mcg (1,000 unit) tablet (Vitamin D3) acetaminophen 500 mg tablet 1,000 mg (2 x 500 mg) PO TID #300 07/22/25 Rx (Tylenol Extra Strength) tabs celecoxib 100 mg capsule (Celebrex) 100 mg PO BID #60 caps 07/22/25 Rx Hospital Stay Data Consultations 07/21/25 09:33 ED Decision to Admit Stat 07/21/25 09:33 Consult Orthopedic Surgery Stat Diagnostic Imagining Performed Reviewed imaging, laboratory and diagnostic studies. Pertinent findings as below. WBCs 5.6 Hemoglobin 10.6 Electrolytes stable Potassium 4.0, improved Creatinine 0.55 Pending Results Patient Have Any Pending Studies at Discharge: No Discharge Instructions Given to Patient (Per Discharging Provider) Follow-up with orthopedics as coordinated Encourage you to use a walker or assistive device over the next couple weeks as you gradually heal. Total Time Total Time Spent Total Time Spent (In Minutes): 26
[2025-07-22 11:00] VITALS: PULSE 67
== END 2025-07-22 11:52 | disposition home or self-care (01) ==
LOC: 3E 05:23 → ED 05:23 → 3E 12:50